=== PATIENT | female | born 1960 | race Caucasian/White ===

== ENCOUNTER 2020-09-22 07:05 | Outpatient (NON) | payer MEDICARE, MEDICAID, SELFPAY ==
[2020-09-22 18:30] LABS: SARS-CoV-2 RNA PCR Negative
== END 2020-09-22 07:06 ==
LOC: ANHCOVIDDT 07:20
PROVIDERS: PCP Family Medicine; Visit Provider Family Medicine
DX: Z20.828 Contact with and (suspected) exposure to other viral communicable diseases (principal); R09.89 Other specified symptoms and signs involving the circulatory and respiratory systems
CPT/HCPCS: 87635; C9803; U0003

== ENCOUNTER 2022-04-19 01:09 | Day surgery (SDC) | payer MEDICARE, MEDICAID, SELFPAY ==
--- NOTE | 2022-04-16 09:50 | PC.NURSE ---
Report to the Outpatient Waiting Room, entrance under the green pavilion located off [facility], at time _0700 on date _04/19/22 . OR Time: _0900 . - You and your visitor will be asked a series of questions to screen for COVID 19 for your protection. - Only one visitor is allowed at this time. - The patient visitor is requested to leave or wait in car when not with patient. - A mask is required within the hospital. Patients may have clear liquids (water, carbonated beverages, clear teas, apple juice) until 3 hours prior to surgery with a maximum of 20 ounces. - No food from midnight until time of surgery - Infants may have breast milk until 4 hours before surgery, infant formula 6 hours prior to surgery. - Children will be allowed to drink immediately following surgery. If applicable, please bring a bottle or sippy cup to assist with drinking. Juice, water, soda, and popsicles are readily available. For infants on formula, please bring formula the day of surgery. Pacifiers are allowed. Take the following medications with a SIP of water the morning of surgery: ____FLUOXETINE Medications to discontinue per physician ___ADVIL 7 DAYS PRE OP Date to take last dose___04/11/22 Please no make-up, nail macedonian, hairspray, perfume, deodorant, or body powder the day of surgery. No jewelry (including any body piercings) or valuables the day of surgery, leave them at home. Please take a shower or bath the night before, or the morning of, surgery with an antibacterial soap. Wear comfortable, loose fitting clothing. Children are encouraged to wear pajamas. - Jewelry must be removed prior to entering the operating room. Rings and piercings that are not removed may be cut off. - The hospital will not accept responsibility for valuables. - Please leave all valuables, including medications, at home the day of surgery. If you are going home after surgery, a licensed emt driver must drive you home. - NO public transportation without another adult. - We recommend that an adult stay with you for 24 hours following discharge. - We also recommend that you do not drive, make important decision, drink alcoholic beverages, or take any drugs that were not prescribed by your health care provider for at least 24 hours after your discharge time. For Pediatric surgeries, we recommend two adults accompany the child home (only one inside the building at this time). Follow any additional instructions given to you from your surgeon. If you or anyone in your household have experienced Covid symptoms in the past week, please notify your surgeon or the nurse liaison at the phone number below for possible testing. Telephone instructions given to _PATIENT and asked if any additional questions and then verbalized understanding. Patient advised to call surgeon office or pre surgery nurse liaison [phone] if any additional questions.
[2022-04-16 11:03] VITALS: BMI 23.2
--- NOTE | 2022-04-18 16:01 | PM.IMHP ---
H&P: HPI History of Present Illness Date/Time: 04/18/22 16:01 Chief Complaint: Right toe deformity and pain Narrative: 61-year-old woman with arthrogryposis with previous surgery and deformity right great toe and lesser toes. Still with significant pain and problems with shoe wear and ambulation. Has failed conservative treatment and presents now for operative treatment. Review of Systems Constitutional: Constitutional: Denies fever(s) Eyes: Eyes: Denies blurry vision ENT: Reports Normal hearing present Cardiovascular: Cardiovascular: Denies chest pain and Denies dyspnea Respiratory: Respiratory: Denies dyspnea and Denies wheezing Gastrointestinal: Gastrointestinal: Denies abdominal pain Genitourinary: Genitourinary: Denies urinary urgency Musculoskeletal: Musculoskeletal: Reports as per HPI and Denies numbness Integumentary/Breasts: Skin/Breast: Denies changing lesions and Denies sores Neurologic: Reports Normal hearing present, Denies behavioral changes, Denies confusion, Denies numbness and Denies convulsions Psychiatric: Psychiatric: Denies behavioral changes, Denies confusion and Denies hallucinations Endocrine: Endocrine: Denies heat intolerance Hematologic/Lymphatic: Hematologic/Lymphatic: Denies easy bleeding Allergic/Immunologic: Allergic/Immunologic: Denies wheezing PMFSH Past Medical History Medical History Anxiety Arthrogryposis Callus of foot Cervical spondylosis with radiculopathy Deformity of toe of right foot Depression Dyspnea Vision loss Surgical History Surgical History H/O foot surgery Left hammertoe correction 04/22/14, 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 History of surgery on arm Right partial ulna removal 08/17/10 Family History Family History Mother Patient's mother is in good health Father Family history of chronic obstructive pulmonary disease Family history of coronary artery disease Other Family history of tuberculosis No family history of diabetes mellitus Social History Social History Smoking packs per day: 0.5 Smoking cigarettes per day: 10.0 Years smoked: 45 Smoking pack-years: 22.50 Smoking status: Current every day smoker Tobacco type: cigarettes Alcohol intake: never Alcohol use details: Socail drinker Substance use: current Substance use type: marijuana Other substance usage details: weekly Last use: 04/12/22 Spiritual care concerns: No Meds Home Medications and Allergies Home Medications Medication Instructions Recorded Confirmed Type alprazolam 1 mg tablet 1 mg PO HS 02/09/22 04/16/22 History cyclobenzaprine 10 mg tablet 10 mg PO DAILY 02/09/22 04/16/22 History fluoxetine 20 mg capsule 20 mg PO DAILY 02/09/22 04/16/22 History imipramine HCl 50 mg tablet 50 mg PO HS 02/09/22 04/16/22 History omeprazole 20 mg capsule,delayed 20 mg PO DAILY 02/09/22 04/16/22 History release ibuprofen 200 mg tablet (Advil) 200 mg PO Q6H PRN Pain 03/26/22 04/16/22 History albuterol sulfate 90 mcg/actuation 2 inh inhalation PRN PRN Shortness 04/16/22 04/16/22 History aerosol inhaler Of Breath ergocalciferol (vitamin D2) 1,250 1 cap PO WEEKLY 04/16/22 04/16/22 History mcg (50,000 unit) capsule Allergies Allergy/AdvReac Type Severity Reaction Status Date / Time No Known Drug Allergies Allergy Other Verified 04/16/22 09:39 Exam Const: General: No confusion Orientation/consciousness: patient oriented x3 and No confusion HENMT: Head: normal to inspection, normocephalic and atraumatic Eyes: Conjunctivae: conjunctivae normal Sclera: sclerae normal Neck: Neck: supple and nontender Chest: Flores
[2022-04-19] VITALS (8 sets, daily range): BP systolic 96–123; BP diastolic 53–67; PULSE 79–95; RESP 14–18; TEMP 36.4–37.5; O2SAT 94–100
--- NOTE | ~2022-04-19 | XR_ITS ---
EXAMINATION: XR surgery orthopedic DATE: 04/19/2022 09:17 INDICATION: Removal of fixation screw at the right great toe TECHNIQUE: 2 fluoroscopic images of the right forefoot were obtained during procedure performed by Dr Serena Hobbs. Radiologist was not present for the imaging or procedure. The amount of fluoroscopy time u sed during this procedure was 0.1 minutes. Total DAP was 0.1271 cGycm^2 COMPARISON: 01/31/2022 FINDINGS: Interval removal of fixation screw at the right great toe and resection of the remaining po rtion of the distal phalanx. Residual lucent screw tract in the proximal phalanx where there been nataliya nge of prior osteotomy at the head. Additional chronic partial amputations of the second-fourth toes with osteotomies across the necks of the second and fourth proximal phalanges with interval revision and approximately advancement of an osteotomy across the mid diaphysis of the third proximal phalanx. There is also likely postoperative soft tissue gas at the distal stump of the second toe. No retaine d metallic foreign bodies. No fracture. The first and fifth metatarsophalangeal joint spaces appear n ormal. The second-fourth metatarsophalangeal joint spaces are suboptimally profiled. IMPRESSION: 1. Fluoroscopy utilized during orthopedic procedure at the right forefoot including removal of a fixa tion screw and resection of the distal phalanx of the right great toe and likely revision osteotomy a t the third proximal phalanx. See procedure note for further detail. Reviewed, dictated and finalized at location A. IMPRESSION: 1. Fluoroscopy utilized during orthopedic procedure at the right forefoot inclu ding removal of a fixation screw and resection of the distal phalanx of the rig ht great toe and likely revision osteotomy at the third proximal phalanx. See p rocedure note for further detail.
--- NOTE | 2022-04-19 07:03 | WPDHPUPDATE1 ---
History and Physical Update Update Date/Time: 04/19/22 07:03 History and Physical has been reviewed, including an updated exam of the patient. There are NO changes in the patient's condition. Risks, benefits, and alternatives have been discussed and questions answered. Patient agrees to proceed with procedure.
--- NOTE | 2022-04-19 07:36 | ECG_ITS ---
Measurements Intervals [place] Rate: 79 P: 88 VT: 162 QRS: 97 QRSD: 91 T: 66 QT: 360 QTc: 413 Interpretive Statements SINUS RHYTHM BORDERLINE RIGHT AXIS DEVIATION [QRS AXIS > 90] NO PREVIOUS ECG AVAILABLE FOR COMPARISON Electronically Signed On 04-19-2022 17:58:48 CDT by Sarah Beaulieu M.D.
[2022-04-19] MEDS: ACETAMINOPHEN 500 MG TABLET 1000 MG PO (07:44)
[2022-04-19] MEDS: LACTATED RINGERS 1,000 ML 30 ML IV CONT ×2 (07:56→09:27)
[2022-04-19] MEDS: KETOROLAC 15 MG/ML VIAL (*BKC) IV PUSH (07:58)
--- NOTE | 2022-04-19 07:58 | WPDANESEPPF ---
Anes - Initial Pre Proc Eval Procedure: Operation Date: 04/19/22 09:00 Proposed Procedures p Right Hallux Removal of Hardware, Partial Amputation, Removal Exotosis Right Third Toe - Gelacio Hobbs MD Date/Time: 04/19/22 07:58 Surgeon: Gelacio Hobbs MD Pre Op Diagnosis: right toe deformity and ulcer Patient Data Age: 61 Gender: F Height: 1.57 m Weight: 56 kg Allergies Allergy/AdvReac Type Severity Reaction Status Date / Time No Known Drug Allergies Allergy Other Verified 04/19/22 07:27 Home Medications Medication Instructions Recorded Confirmed Type alprazolam 1 mg tablet 1 mg PO HS 02/09/22 04/19/22 History cyclobenzaprine 10 mg tablet 10 mg PO DAILY 02/09/22 04/19/22 History fluoxetine 20 mg capsule 20 mg PO DAILY 02/09/22 04/19/22 History imipramine HCl 50 mg tablet 50 mg PO HS 02/09/22 04/19/22 History omeprazole 20 mg capsule,delayed 20 mg PO DAILY 02/09/22 04/19/22 History release ibuprofen 200 mg tablet (Advil) 200 mg PO Q6H PRN Pain 03/26/22 04/19/22 History albuterol sulfate 90 mcg/actuation 2 inh inhalation PRN PRN Shortness 04/16/22 04/16/22 History aerosol inhaler Of Breath ergocalciferol (vitamin D2) 1,250 1 cap PO WEEKLY 04/16/22 04/19/22 History mcg (50,000 unit) capsule Patient hx anesthesia problems: none Family hx anesthesia problems: none Results Review: All pre-operative results and documents have been reviewed as part of the pre-operative evaluation. [facility] Past Medical History Medical History Anxiety Arthrogryposis Callus of foot Cervical spondylosis with radiculopathy Deformity of toe of right foot Depression Dyspnea Vision loss Surgical History Surgical History H/O foot surgery Left hammertoe correction 04/22/14, 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 History of surgery on arm Right partial ulna removal 08/17/10 Family History Family History Mother Patient's mother is in good health Father Family history of chronic obstructive pulmonary disease Family history of coronary artery disease Other Family history of tuberculosis No family history of diabetes mellitus Social History Social History Smoking packs per day: 0.5 Smoking cigarettes per day: 10.0 Years smoked: 45 Smoking pack-years: 22.50 Smoking status: Current every day smoker Tobacco type: cigarettes Alcohol intake: never Alcohol use details: Socail drinker Substance use: current Substance use type: marijuana Other substance usage details: weekly Last use: 04/12/22 Living arrangements: alone Spiritual care concerns: No Anes - Eval Final PreProcedure Day of Procedure 04/19/22 07:58 Patient weight: normal Heart: regular rate and rhythm Lungs: clear to auscultation Airway: Mallampati scale class II Neurological: alert and oriented Last oral intake: >/= 8 hours ASA classification: III Emergent: no Anesthetic plan: proceed Anesthesia type and monitoring: general LMA and standard monitoring Results Review: All pre-operative results and documents have been reviewed as part of the pre-operative evaluation. Informed Consent: The patient's anesthetic plan and its attendant risks and benefits were discussed with the patient/family/POA. Questions were solicited and answers provided to the satisfaction of the patient/family/POA.
[2022-04-19] MEDS: ceFAZolin 2 GM/D5W 50 ML 2 GM/50 ML BAG IVPB (08:32)
[2022-04-19] MEDS: BUPIVACAINE HCL 0.5% PF 30 ML VIAL INFILTRATE (09:26)
--- NOTE | 2022-04-19 10:01 | P.OP_ITS ---
Procedure Note - Detailed Date of Procedure 04/19/22 Pre-op Diagnosis right toe deformity and ulcer, painful hardware, exostosis Post-op Diagnosis Same Procedure Performed Right foot removal of hardware, partial amputation of hallux, excision of exostosis 3rd toe Surgeon Gelacio Hobbs MD Emergency Communications Officer senior executive assistant Anesthesia General Indications 61-year-old woman with arthrogryposis and right toe deformity secondary to medical condition and previous surgery. She has pain at the hallux with relatively long hallux after partial amputation of the lesser toes. This causes problems with weight-bearing and shoe wear. There is hardware present which is painful. She did desires removal and partial amputation of the hallux. Also large exostosis from the 3rd toe with callus formation. Description of Procedure Patient identified in the preoperative holding. Informed consent given. Operative extremity marked. Patient received intravenous antibiotics. Patient brought to the operating room where underwent general anesthetic by anesthesia team. Positioned supine on operating room table. Time-out performed confirming the patient, site of the surgery and the plan. Right foot prepped draped usual sterile surgical fashion using ChloraPrep skin solution. Care was taken to protect the leg during positioning, draping and surgery due to the right hip total arthroplasty. The foot was exsanguinated with an Esmarch bandage which was wrapped at the ankle as a tourniquet. The hallux was addressed 1st. Fifteen blade knife used to make a small incision at the distal aspect of the toe. The cannulated screw was identified and found and removed with a screwdriver. Wound thoroughly irrigated. A dorsal incision was then made over the interphalangeal arthrodesis point and an elliptical incision was made to some of the distal aspect hallux tuft. The distal bone was dissected from soft tissue and the distal phalanx was then removed with a bone cutter and smoothed with a rongeur. Fluoroscopy confirmed resection level. Wound thoroughly irrigated with solution and closed with 3-0 Monocryl interrupted suture and 4-0 nylon interrupted suture for the skin. Third toe then addressed. An elliptical incision was made on the distal aspect. The exostosis was dissected from the soft tissue and resected with a bone cutter. Remaining bone smoothed with a rongeur. Image intensification confirm the resection of the exostosis. Wound irrigated and closed with 3-0 Monocryl interrupted suture and 4-0 nylon interrupted suture. Sterile dressing applied. The patient was then woken from anesthesia, extubated and taken to the recovery room in stable condition. All sponge, needle, instrument counts were correct at the end of the case. Estimated Blood Loss 5 Tourniquet Time 40 Drains No Packing No Pathology None sent Complications None Condition Stable Disposition PACU
== END 2022-04-19 11:35 | disposition home or self-care (01) ==
PROVIDERS: PCP Emergency Medicine; Visit Provider Orthopaedic Surgery
PROC: (CPT 28825; principal; 2022-04-19 09:00)
DX: T84.84XA Pain due to internal orthopedic prosthetic devices, implants and grafts, initial encounter (principal); Y83.8 Other surgical procedures as the cause of abnormal reaction of the patient, or of later complication, without mention of misadventure at the time of the procedure; Q68.8 Other specified congenital musculoskeletal deformities; M20.61 Acquired deformities of toe(s), unspecified, right foot; M77.51 Other enthesopathy of right foot and ankle; L84 Corns and callosities; F41.9 Anxiety disorder, unspecified; F32.A Depression, unspecified; F17.210 Nicotine dependence, cigarettes, uncomplicated; F12.90 Cannabis use, unspecified, uncomplicated; Z79.51 Long term (current) use of inhaled steroids
CPT/HCPCS: 28825; 20680; 28108; 93005; A9270; J0690; J1100; J1885; J2250; J2370; J2405; J3010; J7120

== ENCOUNTER 2022-06-28 12:35 | Outpatient (CLI) | payer MEDICARE, MEDICAID, SELFPAY ==
--- NOTE | ~2022-06-28 | XR_ITS ---
XR chest 2V DATE: 06/28/2022 13:03 INDICATION: Shortness of breath on exertion. Centrilobular emphysema. TECHNIQUE: PA and lateral views COMPARISON: 07/27/2017 2 view chest FINDINGS: Normal heart size. Aortic calcification. Bilateral hyperinflation and flattening of the d iaphragm, consistent with history of COPD. Bilateral mild apical capping. No pulmonary infiltrate or consolidation, pulmonary vascular congestion or pleural effusion or pneumo thorax. Diffuse osteopenia. IMPRESSION: COPD Aortic calcification No active pulmonary disease Reviewed, dictated and finalized at location A.
== END 2022-06-28 12:36 | disposition home or self-care (01) ==
PROVIDERS: PCP Emergency Medicine; Visit Provider Emergency Medicine
DX: J43.2 Centrilobular emphysema (principal); I70.0 Atherosclerosis of aorta
CPT/HCPCS: 71046

== ENCOUNTER 2022-07-22 17:45 | Emergency (ER) | payer MEDICARE, MEDICAID, SELFPAY ==
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
[2022-07-22 18:11] VITALS: BP 93/77; PULSE 89; RESP 18; TEMP 36.9; O2SAT 99
--- NOTE | 2022-07-22 19:36 | ECG_ITS ---
Measurements Intervals [place] Rate: 73 P: 89 [place]: 173 QRS: 89 QRSD: 105 T: 54 QT: 391 QTc: 433 Interpretive Statements SINUS RHYTHM INCOMPLETE RIGHT BUNDLE BRANCH BLOCK [90+ ms QRS DURATION, TERMINAL R IN V1/V2, 40+ ms S IN I/aVL/V4/V5/V6] COMPARED TO ECG 04/19/2022 08:15:44 NO SIGNIFICANT CHANGE Electronically Signed On 07-23-2022 14:40:37 CDT by Jose Mar M.D.
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
[2022-07-22 22:11] VITALS: BP 107/60; PULSE 66; RESP 18; O2SAT 96
[2022-07-22 22:16] LABS: Troponin I 0.014 ng/mL (0.000-0.034)
[2022-07-22] MEDS: HYDROcodone/acetaminophen (*CRX) 5-325 MG TABLET 1 TAB PO (22:37)
== END 2022-07-22 23:00 | disposition home or self-care (01) ==
PROVIDERS: Physician Assistant; Emergency Provider Emergency Medicine; PCP Emergency Medicine
DX: S22.20XA Unspecified fracture of sternum, initial encounter for closed fracture (principal); F41.9 Anxiety disorder, unspecified; F32.A Depression, unspecified; F17.210 Nicotine dependence, cigarettes, uncomplicated; I45.10 Unspecified right bundle-branch block; V49.9XXA Car occupant (driver) (passenger) injured in unspecified traffic accident, initial encounter
CPT/HCPCS: 36415; 71250; 84484; 93005; 99284; A9270

== ENCOUNTER 2023-03-12 00:28 | Day surgery (SDC) | payer MEDICARE, MEDICAID, SELFPAY ==
[2023-02-22 10:47] VITALS: BMI 23.3
[2023-03-12 08:58] VITALS: BP 111/90; PULSE 113; RESP 18; TEMP 36.8; O2SAT 100; BMI 21.0
[2023-03-12] MEDS: LACTATED RINGERS 1,000 ML 150 ML IV CONT (09:22)
--- NOTE | 2023-03-12 09:24 | PM.HPGS ---
History of Present Illness History of Present Illness Consent: Risks, benefits, and alternatives have been discussed and questions answered. Patient agrees to proceed with procedure. Chief complaint: neoplasm screening, GERD Narrative: Kristy Weller is a 62 year old female Referred for both colonoscopy and EGD. Patient states that she has abdominal pain shortly after eating. She develops abdominal cramps. She states she has a tendency towards constipation. She reports she takes no specific medications for this. Patient's past medical history is significant for esophageal stricture. She is felt to have underlying acid reflux disease. Current medications include omeprazole 20mg p.o. daily. She reports slow passage of food that she eats. She denies any heartburn at present. Patient does have past medical history of ischemic colitis in 2017 diagnosed by colonoscopy. Patient is referred today for neoplasia screening colonoscopy. She denies any blood in her stools. She denies any weight loss. No reported family history of colon or rectal disease. Review of Systems Review of Systems: Review of systems noncontributory. 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 History of surgery on arm Right partial ulna removal 08/17/10 Family History Family History Mother Patient's mother is in good health Father Family history of chronic obstructive pulmonary disease Family history of coronary artery disease Other Family history of tuberculosis No family history of diabetes mellitus Social History Social History Smoking packs per day: 0.5 Smoking cigarettes per day: 10.0 Years smoked: 48 Smoking pack-years: 24.00 Smoking status: Current every day smoker Tobacco type: cigarettes Alcohol intake: current Alcohol use details: Socail drinker Substance use: current Substance use type: marijuana Other substance usage details: SMOKES OCC. Last use: 04/12/22 Living arrangements: with family Spiritual care concerns: No Meds Home Medications and Allergies Home Medications Medication Instructions Recorded Confirmed Type alprazolam 1 mg tablet 1 mg PO TID 02/09/22 02/22/23 History cyclobenzaprine 10 mg tablet 10 mg PO HS 02/09/22 02/22/23 History fluoxetine 20 mg capsule 20 mg PO DAILY 02/09/22 02/22/23 History imipramine HCl 50 mg tablet 50 mg PO HS 02/09/22 02/22/23 History omeprazole 20 mg capsule,delayed 20 mg PO DAILY 02/09/22 02/22/23 History release albuterol sulfate 90 mcg/actuation 2 inh inhalation PRN PRN Shortness 04/16/22 02/22/23 History aerosol inhaler Of Breath Allergies Allergy/AdvReac Type Severity Reaction Status Date / Time No Known Drug Allergies Allergy Other Verified 02/22/23 10:49 Vital Signs Vital Signs - 24 hr 03/12/23 08:58 Temperature 98.2 F Pulse Rate 113 H Respiratory Rate 18 Blood Pressure 111/90 Pulse Oximetry 100 Oxygen Delivery Room Air Exam Narrative: Physical exam reveals patient to be alert. Vital signs stable. HEENT exam is unremarkable. Patient is anicteric. Lungs are clear to auscultation and percussion. Heart is without murmur or extra sounds. Abdomen bowel sounds present soft nontender with no organomegaly. Digital external rectal exam is normal. Assessment and Plan Assessment and plan (1) Encounter for screening colonoscopy:
--- NOTE | 2023-03-12 09:36 | WPDANESEPPF ---
Anes - Initial Pre Proc Eval Procedure: Operation Date: 03/12/23 10:00 Proposed Procedures p Esophagogastroduodenoscopy & Screening Colonoscopy - Allan Aguiar MD Date/Time: 03/12/23 09:36 Surgeon: Allan Aguiar MD Pre Op Diagnosis: neoplasm screening, GERD Patient Data Age: 62 Gender: F Height: 1.57 m Weight: 52.2 kg Last Vital Signs Temp 98.2 F 03/12/23 08:58 Pulse 113 H 03/12/23 08:58 Resp 18 03/12/23 08:58 BP 111/90 03/12/23 08:58 Pulse Ox 100 03/12/23 08:58 O2 Del Method Room Air 03/12/23 08:58 Allergies Allergy/AdvReac Type Severity Reaction Status Date / Time No Known Drug Allergies Allergy Other Verified 02/22/23 10:49 Home Medications Medication Instructions Recorded Confirmed Type alprazolam 1 mg tablet 1 mg PO TID 02/09/22 02/22/23 History cyclobenzaprine 10 mg tablet 10 mg PO HS 02/09/22 02/22/23 History fluoxetine 20 mg capsule 20 mg PO DAILY 02/09/22 02/22/23 History imipramine HCl 50 mg tablet 50 mg PO HS 02/09/22 02/22/23 History omeprazole 20 mg capsule,delayed 20 mg PO DAILY 02/09/22 02/22/23 History release albuterol sulfate 90 mcg/actuation 2 inh inhalation PRN PRN Shortness 04/16/22 02/22/23 History aerosol inhaler Of Breath Patient hx anesthesia problems: none Family hx anesthesia problems: none Results Review: All pre-operative results and documents have been reviewed as part of the pre-operative evaluation. 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 History of surgery on arm Right partial ulna removal 08/17/10 Family History Family History Mother Patient's mother is in good health Father Family history of chronic obstructive pulmonary disease Family history of coronary artery disease Other Family history of tuberculosis No family history of diabetes mellitus Social History Social History Smoking packs per day: 0.5 Smoking cigarettes per day: 10.0 Years smoked: 48 Smoking pack-years: 24.00 Smoking status: Current every day smoker Tobacco type: cigarettes Alcohol intake: current Alcohol use details: Socail drinker Substance use: current Substance use type: marijuana Other substance usage details: SMOKES OCC. Last use: 04/12/22 Living arrangements: with family Spiritual care concerns: No Anes - Eval Final PreProcedure Day of Procedure 03/12/23 09:36 Patient weight: normal Heart: regular rate and rhythm Lungs: clear to auscultation Airway: Mallampati scale class II Neurological: alert and oriented Last oral intake: >/= 8 hours ASA classification: III Emergent: no Anesthetic plan: proceed Anesthesia type and monitoring: general GIVS and standard monitoring Results Review: All pre-operative results and documents have been reviewed as part of the pre-operative evaluation. Informed Consent: The patient's anesthetic plan and its attendant risks and benefits were discussed with the patient/family/POA. Questions were solicited and answers provided to the satisfaction of the patient/family/POA.
--- NOTE | 2023-03-12 10:21 | SUR.OPER ---
EGD START: 1003; END: 1005. COLONOSCOPY START: 1011; END: 1021.
[2023-03-12 10:24] VITALS: BP 108/33; PULSE 74; RESP 22; O2SAT 98
[2023-03-12 10:34] VITALS: BP 121/66; PULSE 74; RESP 20; O2SAT 99
[2023-03-12 10:44] VITALS: BP 130/55; PULSE 72; RESP 20; O2SAT 99
== END 2023-03-12 10:55 | disposition home or self-care (01) ==
PROVIDERS: PCP Emergency Medicine; Visit Provider Internal Medicine Gastroenterology
PROC: 0DJ08ZZ Inspection of Upper Intestinal Tract, Via Natural or Artificial Opening Endoscopic (ICD-10-PCS; CPT 43235; principal; 2023-03-12 10:00)
DX: Z12.11 Encounter for screening for malignant neoplasm of colon (principal); K21.9 Gastro-esophageal reflux disease without esophagitis; M47.22 Other spondylosis with radiculopathy, cervical region; Q68.8 Other specified congenital musculoskeletal deformities; F17.210 Nicotine dependence, cigarettes, uncomplicated; F32.A Depression, unspecified; F41.9 Anxiety disorder, unspecified
CPT/HCPCS: 43239; G0121; 87081; J2704; J7120

== ENCOUNTER 2023-06-28 10:50 | Outpatient (CLI) | payer MEDICARE, MEDICAID, SELFPAY ==
--- NOTE | ~2023-06-28 | XR_ITS ---
Clinical Indication: Chest pain PA and lateral views of the chest: Comparison: 06/28/2022 Findings: There is focal hazy opacity in the peripheral right upper lobe. There is additional subtle hazy opacity in the right perihilar region. Left lung clear.. Cardiomediastinal silhouette is within normal limits. Bones and soft tissues are unremarkable. Impression: Suspected multifocal pneumonia in the right lung. Reviewed, dictated and finalized at location M. Impression: Suspected multifocal pneumonia in the right lung.
== END 2023-06-28 10:51 | disposition home or self-care (01) ==
PROVIDERS: PCP Emergency Medicine; Visit Provider Emergency Medicine
DX: R07.89 Other chest pain (principal); R91.8 Other nonspecific abnormal finding of lung field
CPT/HCPCS: 71046

== ENCOUNTER 2023-11-15 13:01 | Outpatient (CLI) | payer MEDICARE, MEDICAID, SELFPAY ==
--- NOTE | ~2023-11-15 | CT_ITS ---
EXAMINATION: CT lung screening DATE: 11/15/2023 13:15 INDICATION: Nicotine dependence TECHNIQUE: Computed tomography (CT) of the chest was performed without intravenous contrast. The dose -length product was 62.28 mGy-cm. Automated exposure control and iterative reconstruction technique w ere employed. COMPARISON: CT dated 07/22/2022 FINDINGS: There is mediastinal lymphadenopathy. Heart size normal. No significant pleural or pericard ial effusion. Status post cholecystectomy. There is atherosclerosis of the aorta and coronary arterie s. There is a focal pleural thickening/scarring which appears chronic. There is emphysema. There is a pleural-based mass in the superior segment of the left lower lobe measuring 2 x 1.5, image 50. There is also focal left pleural thickening posterior laterally in the left midlung, image 43. There are a few patchy groundglass opacities with reticulonodular densities, particularly in the right lower lob e. IMPRESSION: 1. Lung Rads category 4B, very suspicious. Recommend follow-up PET/CT scan or CT guided tissue sampli ng. Reviewed, dictated and finalized at location B. LER OPERATOR IMPRESSION: 1. Lung Rads category 4B, very suspicious. Recommend follow-up PET/CT scan or C T guided tissue sampling.
== END 2023-11-15 13:02 | disposition home or self-care (01) ==
PROVIDERS: PCP Emergency Medicine; Visit Provider Emergency Medicine
DX: Z12.2 Encounter for screening for malignant neoplasm of respiratory organs (principal); Z87.891 Personal history of nicotine dependence
CPT/HCPCS: 71271

== ENCOUNTER 2023-12-10 11:54 | Outpatient (CLI) | payer MEDICARE, MEDICAID, SELFPAY ==
--- NOTE | ~2023-12-10 | PE_ITS ---
EXAMINATION: PET skull to mid thigh DATE: 12/10/2023 14:38 INDICATION: Lung nodule TECHNIQUE: Blood glucose level was 189 mg/dL. 9.19 mCi of 18-fluorodeoxyglucose (18-FDG) was administ ered i.v. Low dose computed tomography (CT) images were acquired from the base of the brain to the pr oximal thighs for attenuation correction and anatomic localization. Positron emission tomography (PET ) images were acquired in the same distribution beginning 59 minutes after injection. The dose-length product (DLP) was 529.32 mGy-cm. COMPARISON: CT, 11/15/2023, 07/22/2022 FINDINGS: Head/neck: There is FDG uptake in the right bond writer space without suspicious CT correlate, likely physiologic. No suspicious FDG uptake is identified. Chest: Airspace opacities have developed in the lower lobes since the comparison CT. There is associa ryley FDG uptake with an SUV max of 8.75. There is a persistent pleural-based nodule in the posteromedi al aspect of the left lower lobe which demonstrates mild FDG uptake but is difficult to discern from the adjacent airspace opacity. There is mild emphysema. There is scarring of the lung apices. No path ologically enlarged thoracic lymph nodes are identified. The heart size is normal. Calcified coronary artery atherosclerosis is noted. No pleural effusion or pneumothorax. Abdomen/pelvis/proximal thighs: Physiologic FDG activity is present in the bowel and urinary tract. N o abnormal FDG uptake is identified. There are changes of cholecystectomy. The liver, spleen, pancrea s, and adrenal glands are normal. The kidneys are unremarkable. No pathologically enlarged abdominal or pelvic lymph nodes are identified. No free intraperitoneal gas or evidence of bowel obstruction. Musculoskeletal: No abnormal FDG uptake is identified. Lucencies in left humeral head could reflect s ites of prior orthopedic hardware. There is antegrade intramedullary piper and interlocking intratrocha nteric screw fixation of the femurs. IMPRESSION: 1. Airspace opacities in the lower lobes, new since the comparison CT, likely pneumonia. The pleural- based nodule of the left lower lobe remains indeterminate. Follow-up low-dose CT in three months is r ecommended. Reviewed, dictated and finalized at location B. PROGRAMMER ANALYST IMPRESSION: 1. Airspace opacities in the lower lobes, new since the comparison CT, likely p neumonia. The pleural-based nodule of the left lower lobe remains indeterminate . Follow-up low-dose CT in three months is recommended.
[2023-12-10 12:47] LABS: Glucose Point of Care 100 mg/dl (65-105)
== END 2023-12-10 11:55 | disposition home or self-care (01) ==
LOC: ANHIMG 11:55
PROVIDERS: PCP Emergency Medicine; Visit Provider Emergency Medicine
DX: R91.8 Other nonspecific abnormal finding of lung field (principal); R91.1 Solitary pulmonary nodule
CPT/HCPCS: 78815; A9552

== ENCOUNTER 2024-02-26 10:40 | Outpatient (CLI) | payer MEDICARE, MEDICAID, SELFPAY ==
--- NOTE | ~2024-02-26 | CT_ITS ---
EXAMINATION:CT diagnostic chest wo con DATE: 02/26/2024 11:13 INDICATION: Lung nodule. TECHNIQUE: Computed tomography (CT) of the chest was performed without intravenous contrast. Automate d exposure control and iterative reconstruction technique were employed. The dose-length product (DLP ) was 67.75 mGy-cm. COMPARISON: Chest CT 11/15/2023, 07/22/2022 FINDINGS: There is mosaic attenuation in the lungs, likely small airways disease. There are chronic a irspace opacities with volume loss at the lung apices, consistent with scarring. There are airspace o pacities with volume loss in the peripheral apicoposterior segment left upper lobe and superior segme nt left lower lobe. There is peripheral septal thickening in the inferior lungs. There is mild bronch iectasis in the inferior lungs. No honeycombing. No pleural effusion. 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 The heart size is normal. There are coronary artery calcifications. No pericardial eff usion. There are no pathologically enlarged lymph nodes. There are changes of cholecystectomy. There is mild thoracic spondylosis. IMPRESSION: 1. Airspace opacities in the apicoposterior segment left upper lobe and superior segment left lower l obe with mild worsening from 11/15/21, likely a combination of pneumonia and scarring. 2. Chronic interstitial lung disease. Reviewed, dictated and finalized at location A. IMPRESSION: 1. Airspace opacities in the apicoposterior segment left upper lobe and superio r segment left lower lobe with mild worsening from 11/15/21, likely a combinatio n of pneumonia and scarring. 2. Chronic interstitial lung disease.
== END 2024-02-26 10:41 | disposition home or self-care (01) ==
PROVIDERS: PCP Emergency Medicine; Visit Provider Emergency Medicine
DX: R91.1 Solitary pulmonary nodule (principal); R91.8 Other nonspecific abnormal finding of lung field; J84.9 Interstitial pulmonary disease, unspecified
CPT/HCPCS: 71250

== ENCOUNTER 2024-03-09 14:57 | Outpatient (CLI) | payer MEDICARE, MEDICAID, SELFPAY ==
--- NOTE | ~2024-03-09 | MM_ITS ---
EXAMINATION: MM screening nicki BI w rob HISTORY: Screening TECHNIQUE: Craniocaudal and mediolateral oblique 3-D tomosynthesis images were obtained and synthetic 2-D images were generated. CAD analysis was submitted and interpreted. COMPARISON: Comparison to multiple prior studies sequentially, with oldest reviewed study dated 06/2015. BREAST PARENCHYMAL COMPOSITION: Not dense: There are scattered areas of fibroglandular density. FINDINGS: There is no evidence of suspicious mass, calcification, or architectural distortion to sugg est malignancy in either breast. There has been no suspicious interval change. IMPRESSION: 1. No mammographic evidence of malignancy. 2. Recommend routine screening mammography in one year. BI-RADS Category 1: Negative Reviewed, dictated and finalized at location A.
--- NOTE | ~2024-03-09 | DEXA_ITS ---
Bone Density Report Name: NATALYA LIZARRAGA Age: 63 Sex: Female Ethnicity: White Date of : 1960 Indication: postmenopausal; screening for osteoporosis; height loss; prior fracture; cancer; asthma or emphysema; hysterectomy; rheumatoid arthritis; Referring Provider: LISA DUARTE Study: Bone densitometry was performed. Exam Date: March 09, 2024 Accession number: [id number] Bone Density: Region BMD T-score Z-score Classification AP Spine(L1-L4) 0.974 -0.7 0.9 Normal World Health Organization criteria for BMD impression classify patients as: Normal (T-score at or above -1.0), Osteopenia (T-score between -1.0 and -2.5), or Osteoporosis (T-score at or below -2.5). Previous Exams: Region Exam Age BMD T-score BMD Change BMD Change Date g/cm2 vs Baseline vs Previous AP Spine (L1-L4) 03/09/2024 63 0.974 -0.7 -0.120 (-10.9% -0.120 (-10.9% 06/29/2015 54 1.094 0.4 *Denotes significance at 95% confidence level, LSC for AP Spine = 0.022 g/cm2 Clinical Information Provided by Patient: Have had a previous hip or vertebral fracture Has had a low trauma fracture Smokes Has rheumatoid arthritis Has the following medical conditions: Asthma or Emphysema, Cancer, Hysterectomy Patient maximum height was 62.0 Menopause Age: 27 No regular weight bearing exercise Drinks caffeinated beverages Onset of menses at age 13 Number of children 1 Impression: The patient has normal bone mass. The patient has risk factors, including: smoking, previous fracture. The BMD for the AP Spine (L1-L4) decreased, changing by -10.9% since the last DXA exam. Discussion: INCREASED RISK OF FRACTURE DUE TO HISTORY OF FRACTURE. The patient's previous fracture puts the patient at high risk of a future fracture. In untreated patients, the risk of osteoporotic fracture increases approximately two-fold for each 1.0 SD decrease in T-score. Low bone density is not the only risk factor for fracture; also consider factors such as patient's age, frailty or poor health, risk of falling, risk of injury, previous osteoporotic fracture, family history of osteoporosis, cigarette smoking, low body weight, etc. Not everyone with a low trauma fracture has osteoporosis; osteomalacia and other metabolic bone disorders should also be considered. Patients who have osteoporosis should be evaluated for specific diseases and conditions (secondary causes) that may cause or contribute to bone loss and fracture risk. National Osteoporosis Foundation (NOF) recommends pharmacologic intervention for patients with a prior hip or vertebral fracture regardless of BMD T-score. The patient should follow a healthful lifestyle (good nutrition with adequate calcium and vitamin D, and appropriate weight-bearing exe
== END 2024-03-09 14:58 | disposition home or self-care (01) ==
LOC: ANHIMG 14:59
PROVIDERS: PCP Emergency Medicine; Visit Provider Emergency Medicine
DX: Z12.31 Encounter for screening mammogram for malignant neoplasm of breast (principal); R29.890 Loss of height; Z78.0 Asymptomatic menopausal state; Z85.9 Personal history of malignant neoplasm, unspecified; Z13.820 Encounter for screening for osteoporosis
CPT/HCPCS: 77063; 77067; 77080

== ENCOUNTER 2024-06-30 11:57 | Outpatient (CLI) | payer MEDICARE, MEDICAID, SELFPAY ==
--- NOTE | ~2024-06-30 | XR_ITS ---
EXAMINATION: XR barium swallow modified DATE: 06/30/2024 14:01 INDICATION: Dysphagia. Shortness of breath. TECHNIQUE: The patient was given barium-containing material of multiple consistencies to swallow by t pamela speech pathologist while I performed fluoroscopy. Fluoroscopy exposure time was 1.4 minutes. The n umber of fluoroscopy images saved to the PACS was 1. Dose-area product was 0.847 Gy-cm^2. FINDINGS: The pharyngeal stage and cervical/esophageal stage of the swallow are normal. IMPRESSION: 1. No laryngeal penetration or aspiration. 2. Please refer to the speech therapy report for recommendations. Reviewed, dictated and finalized at location A.
--- NOTE | 2024-06-30 09:23 | ECHO_ITS ---
Patient Info Name: Kristy Weller Age: 63 years : 1960 Gender: Female Ht: 62 in Wt: 116 lbs BSA: 1.52 m2 HR: 77 bpm BP: 118 / 61 mmHg Technical Quality: Fair Exam Date: 06/30/2024 9:35 AM Exam Location: Echo Lab Patient Status: Outpatient Admit Date: 06/30/2024 Staff Ordering Physician: Jose Washington MD Director Institution: [facility] Attending Provider: Jose Washington MD Referring Physician: Felix SHAH; Exam Type: CA echo doppler color flow Study Info Indications R06.02 - Shortness of breath Complete two-dimensional, color flow and Doppler transthoracic echocardiogram is performed. Strain analysis performed. Summary 1. Complete two-dimensional, color flow and Doppler transthoracic echocardiogram is performed. 2. Left ventricular chamber dimension is normal. 3. Left ventricular systolic function is normal, estimated at 60-65%. 4. The left ventricular diastolic function is abnormal. 5. E/e' 12 is mildly elevated. 6. Global longitudinal strain is slightly abnormal at -16.2%. 7. There is mild aortic valve sclerosis. 8. No pulmonary hypertension, estimated pulmonary arterial systolic pressure is 35 mmHg. 9. There is trace pulmonic regurgitation. Left Ventricle E/e' 12 is mildly elevated. Global longitudinal strain is slightly abnormal at -16.2%. Left ventricular chamber dimension is normal. Left ventricular systolic function is normal, estimated at 60-65%. The left ventricular diastolic function is abnormal. Right Ventricle Right ventricular systolic function is normal and with normal TAPSE 1.8 cm. Right ventricular chamber dimension is normal. Left Atria Left atrial chamber dimension is normal. Right Atria Right atrial chamber dimension is normal. Aortic Valve The aortic valve is trileaflet. There is mild aortic valve sclerosis. There is no aortic valve stenosis. There is no aortic valve regurgitation. Pulmonic Valve There is trace pulmonic regurgitation. Mitral Valve There is no mitral valve stenosis. There is no mitral valve regurgitation. Tricuspid Valve There is no tricuspid valve regurgitation. No pulmonary hypertension, estimated pulmonary arterial systolic pressure is 35 mmHg. Pericardium/Pleural There is no pericardial effusion. Inferior Vena Cava Normal inferior vena cava with >50% collapse upon inspiration consistent with normal right atrial pressure, 5 mmHg. Aorta The aortic root size at the sinus of Valsalva is normal. Left Ventricular Outflow Tract Name Value Normal LVOT 2D LVOT Diameter 1.9 cm LVOT Doppler LVOT Peak Gradient 4 mmHg LVOT Mean Gradient 2 mmHg LVOT VTI 22 cm LVOT VTI/AV VTI Ratio 0.8 LVOT Stroke Volume 62 ml LVOT CO 4.5 l/min LVOT CI 3.0 l/min/m2 Pulmonic Valve Name Value Normal RVOT Doppler
[2024-06-30 12:57] LABS: Basophils Percent Auto 0.7 % (0.2-1.2); Eosinophils Absolute Auto 0.1 K/mm3 (0-0.3); Eosinophils Percent Auto 1.7 % (0-4.4); Hematocrit 41.5 % (37.0-47.0); Hemoglobin 13.3 g/dL (12.0-15.0); Immature Granulocyte Absolute 0.03 K/mm3 (0.00-0.031); Immature Granulocyte Percent A 0.5 % (0-0.5); Lymphocytes Absolute Auto 2.38 K/mm3 (0.9-3.2); Lymphocytes Percent Auto 39.9 % (18.3-44.2); Mean Corpuscular Hemoglobin 28.2 pg (26-34); Mean Corpuscular Volume 87.9 fl (80-100); Monocytes Absolute Auto 0.3 K/mm3 (0.1-0.6); Neutrophils Absolute Auto 3.1 K/mm3 (1.3-6.7); Neutrophils Percent Auto 52.2 % (45.5-73.1); Platelet Count Result 160 k/mm3 (150-375); Red Blood Count 4.72 M/mm3 (4.2-5.4)
[2024-06-30 13:14] LABS: CRP < 0.5 mg/dL (<1.0); Creatine Kinase 121 U/L (30-135)
[2024-06-30 13:18] LABS: Rheumatoid Factor < 12.0 IU/ML (<12)
[2024-06-30 14:45] LABS: Erythrocyte Sedimentation Rate 20 mm/hr (0-20)
[2024-07-01 14:09] LABS: Immunoglobulin A 316 mg/dL (70-320); Immunoglobulin G 870 mg/dL (600-1540); Immunoglobulin M 56 mg/dL (50-300)
[2024-07-01 14:39] LABS: Aldolase 4.7 U/L (< OR = 8.1)
[2024-07-02 12:58] LABS: ANA Cascade Screen NEGATIVE (NEGATIVE)
[2024-07-02 14:58] LABS: Anti Cyclic Citrullinated Pept <16 UNITS
[2024-07-02 17:50] LABS: NIL 0.02 IU/mL; Quantiferon TB Plus, 1T NEGATIVE (NEGATIVE); TB2-NIL <0.00 IU/mL
[2024-07-03 10:28] LABS: Immunoglobulin G, Serum 776 mg/dL (600-1540); Immunoglobulin G1 459 mg/dL (382-929); Immunoglobulin G2 221 mg/dL (241-700); Immunoglobulin G3 38 mg/dL (22-178)
--- NOTE | 2024-07-03 15:02 | WPDPFTINT ---
PFT Procedure Performed PFT Procedure Performed Spirometry with Pre/Post Bronchodilator Plethysmography (Lung Vol) Diffusing Cap (DLCO) Flow Vol Loop PFT Interpretation Lung volumes were measured with the body plethysmography method. Lung volumes are unremarkable. Spirometry showed diminished expiratory flow rates and a diminished FEV1 to FVC ratio 56%, consistent with obstructive airway disease. Following administration of a bronchodilator, there was no significant increase in the expiratory flow rates. Lung diffusion capacity is moderately reduced at 49% predicted. The reduced lung diffusion capacity coupled with a diminished alveolar volume and a normal DLCO/ VA ratio is indicative of a loss of alveolar capillary structure with loss of lung volume as seen in emphysema or interstitial lung disease. Impression: Moderately severe obstructive airway disease with no response to bronchodilators. Moderately reduced lung diffusion capacity.
--- NOTE | 2024-07-03 15:07 | WPDSIXMINUTE ---
Six Minute Walk Procedure Procedure Performed Pulmonary Stress Test (6 min walk) Six Minute Walk Six Minute Walk: This 6 minute walk test was conducted with the patient breathing ambient air. The pre-walk baseline oxyhemoglobin saturation was 97%. The patient walked 183 min with no stops during testing. During the walk, the oxyhemoglobin saturation remained in the range of 90% to 95%. Impression: No evidence of oxyhemoglobin desaturation on this testing.
[2024-07-04 11:53] LABS: ANCA Screen NEGATIVE (NEGATIVE)
[2024-07-09 09:14] LABS: Aspergillus Fumigatus K/UL <0.10 kU/L; Aspergillus fumigatus (m3) IgG 22.4 mcg/mL (<2.0); Conventional Class 0
[2024-07-17 05:26] LABS: Aspergillus fumigatus NEGATIVE (NEGATIVE)
== END 2024-06-30 11:58 | disposition home or self-care (01) ==
PROVIDERS: PCP Emergency Medicine; Visit Provider Internal Medicine Pulmonary Disease
DX: J44.9 Chronic obstructive pulmonary disease, unspecified (principal); J98.4 Other disorders of lung; I35.8 Other nonrheumatic aortic valve disorders; I51.89 Other ill-defined heart diseases; R91.1 Solitary pulmonary nodule; J47.9 Bronchiectasis, uncomplicated
CPT/HCPCS: 36415; 82085; 82550; 82784; 82787; 85025; 85652; 86001; 86003; 86036; 86038; 86140; 86200; 86225; 86235; 86364; 86430; 86480; 92611; 93306; 94060; 94618; 94726; 94729

== ENCOUNTER 2024-09-07 14:08 | Observation (INO) | payer MEDICARE, MEDICAID, SELFPAY ==
[2024-09-07] VITALS (13 sets, daily range): BP systolic 107–144; BP diastolic 56–87; PULSE 89–121; RESP 18–36; TEMP 36.6–37; O2SAT 96–100; BMI 22.8
--- NOTE | ~2024-09-07 | CT_ITS ---
CT brain wo con Ordering provider: Wen Quick PA-C History: 64 years Female with . dizziness . Comparison: None. Technique: CT of the head without contrast. Radiation reduction technique utilized.The dose-length product was 681 mGy-cm. FINDINGS: BRAIN PARENCHYMA AND CSF SPACES: Mild leukoaraiosis and diffuse cortical atrophy. Mild atheromatous d isease. No midline shift, mass effect or hemorrhage. The brain parenchyma and CSF spaces are otherwi se normal. VISUALIZED PARANASAL SINUSES: Well aerated. MASTOIDS: Well aerated. BONES: The bones appear intact. SOFT TISSUES: Visualized nasopharynx is normal. Superficial soft tissues are normal. IMPRESSION: No acute intracranial findings. Reviewed, dictated and finalized at location A. RACTIVE WEB DEVELOPER
--- NOTE | ~2024-09-07 | XR_ITS ---
EXAMINATION: XR hip RT 2V w AP pelvis DATE: 09/10/2024 17:19 INDICATION: Right hip replacement with chronic osteomyelitis. TECHNIQUE: Anteroposterior view of the pelvis and anteroposterior and frog-leg lateral views of the r ight hip were obtained. COMPARISON: 05/26/2024, 12/18/2022 and 03/11/2009 FINDINGS: No acute fracture. Asymmetric appearance to the bilateral iliac wings which could be developmental or sequela of old healed fracture of the right iliac wing. Stable appearance of a noncemented right tot al hip arthroplasty. No recent interval change in chronic osteolysis at the proximal aspect of the ri ght femur with smoothly corticated margins ossifications in the expected region of the lesser and gre ater trochanters likely representing chronic nonunited fracture fragments which have been present but with some remodeling when compared with the study from 2008. There are some unchanged retained wire fragments in the previous region of the lesser trochanter. The acetabular component is positioned sli ghtly more cephalad than typical with some protrusio acetabula however this also appears unchanged si nce 2008. No evident lucency surrounding the acetabular component or the mid to distal stem of the fe moral component to suggest loosening. Retrograde intramedullary piper fixation at the visualized proximal left femur. There is a chronically fractured proximal interlocking screw at the level of the greater trochanter. Mild osteoarthritis at the left hip and bilateral sacralized joints. Moderate lower lumbar spondylosis. IMPRESSION: 1. Stable appearance of a right total hip arthroplasty with chronic osteolysis and likely nonunited f racture fragments in the region of the lesser and greater trochanters. No acute osseous abnormality. 2. Partially visualized retrograde intramedullary piper fixation at the visualized proximal left femur with chronic fracture of the proximal interlocking screw. Reviewed, dictated and finalized at location B. NG TESTER IMPRESSION: 1. Stable appearance of a right total hip arthroplasty with chronic osteolysis and likely nonunited fracture fragments in the region of the lesser and greater trochanters. No acute osseous abnormality. 2. Partially visualized retrograde intramedullary piper fixation at the visualize d proximal left femur with chronic fracture of the proximal interlocking screw.
--- NOTE | ~2024-09-07 | CT_ITS ---
EXAMINATION: CTA chest PE abdomen pel DATE: 09/07/2024 17:38 INDICATION: Chest pain. TECHNIQUE: Computed tomography angiography (CTA) of the chest was performed with 100 mL Omnipaque-350 intravenous contrast timed to evaluate the pulmonary arteries. Coronal maximum intensity projection 3D-reconstructions were created by the technologist. Computed tomography (CT) of the abdomen and pelv is was performed with intravenous contrast. Automated exposure control and iterative reconstruction t echnique were employed. The dose-length product was 460.75 mGy-cm. COMPARISON: Chest CT 02/26/2024, CT abdomen and pelvis 07/14/2017 FINDINGS: CTA chest: There is scarring at the lung apices. There is mosaic attenuation in the lungs, likely sma ll airways disease. There is a pneumatocele left lower lobe. There is mild atelectasis bilaterally. T here are airspace opacities in left upper lobe and superior segment left lower lobe. No pleural effus ion. There is total occlusion of the right subclavian artery with reconstitution of flow from the jayson tebral artery. The heart size is normal. No pericardial effusion. There is no pulmonary embolus. Ther e is mild mediastinal lymphadenopathy, likely reactive. There is a small sliding hiatal hernia. There is moderate thoracic spondylosis. CT abdomen and pelvis: The liver and spleen are normal. There are changes of cholecystectomy. The rey creas and adrenal glands are normal. There are cysts in the kidneys measuring up to 11 mm on the left . The bladder is distended. There are no dilated loops of bowel. There are no pathologically enlarged lymph nodes. There is no free intraperitoneal fluid. There is a total right hip arthroplasty. There are lucencies in the ilium adjacent to the acetabular cup, consistent with osteolysis. There is inter nal fixation of left femur. There is severe lumbar spondylosis. IMPRESSION: 1. No pulmonary embolus. 2. Airspace opacities involving left upper lobe and superior segment left lower lobe with slight wors ening from 02/26/2024, likely a combination of pneumonia and scarring. 3. Mild mediastinal lymphadenopathy, likely reactive. 4. Total occlusion of right subclavian artery with reconstitution, consistent with subclavian steal s yndrome. 5. Total right hip arthroplasty with osteolysis adjacent to the acetabular cup, consistent with parti wyatt disease versus infection. Reviewed, dictated and finalized at location A. CTOR OF INTERCOLLEGIATE ATHLETICS IMPRESSION: 1. No pulmonary embolus. 2. Airspace opacities involving left upper lobe and superior segment left lower lobe with slight worsening from 02/26/2024, likely a combination of pneumonia an d scarring. 3. Mild mediastinal lymphadenopathy, likely reactive. 4. Total occlusion of right subclavian artery with reconstitution, consistent w ith subclavian steal syndrome. 5. 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
--- NOTE | ~2024-09-07 | CT_ITS ---
History: Abnormal imaging study of the postoperative right hip for which abscess versus particle dise ase is suspected PROCEDURE: CT guided aspiration of the right glenohumeral joint space COMPARISON: Reference was made to a CT examination of the abdomen and pelvis dated 09/07/2024 TECHNIQUE: After informed consent was obtained from the patient she was taken to the CT suite and claude augustine in the supine position on the CT table. A time out was then performed as per protocol. Limited CT examination of the pelvis was performed demonstrating abnormal attenuation within the righ t hip. The right hip was then prepped and draped in standard sterile fashion. 1% lidocaine was used for local analgesia. This small needle was then exchanged for a 12-gauge bone biopsy device. Utilizing CT guidance, the de vice was utilized to enter the right glenohumeral joint space. No fluid component was encountered. The substance was then removed using The bone biopsy device. Samples were placed into a sterile cup in order to send to pathology. FINDINGS: Dense components of bone attenuation are identified within the right hip, as detailed above . Technically successful aspiration of a bony density within the right hemipelvis, as detailed above. Reviewed, dictated and finalized at location A. COLLECTION SPECIALIST
--- NOTE | ~2024-09-07 | XR_ITS ---
XR chest 2V Ordering provider: Lennox Frye History: 64 years Female with . chest pain, SOB . Comparison: None. FINDINGS: MEDIASTINUM: The cardiac silhouette is not enlarged. LUNGS: No infiltrates, effusions or pneumothorax. Emphysematous changes of the lungs. Elevation of th e left hilum is seen. Adjacent nodule cannot be excluded. CT evaluation advised. OTHER: No free air under the diaphragm. IMPRESSION: No acute cardiopulmonary pathology. Elevation of the left hemidiaphragm with possibility of adjacent nodule cannot be excluded. CT evalua tion advised. Reviewed, dictated and finalized at location A. YTICAL STATISTICIAN IMPRESSION: No acute cardiopulmonary pathology. Elevation of the left hemidiaphragm with possibility of adjacent nodule cannot be excluded. CT evaluation advised.
--- NOTE | 2024-09-07 14:09 | ECG_ITS ---
Test Date: 2024-09-07 14:19:30 Measurements Intervals [place] Rate: 113 P: 0 [place]: 0 QRS: 112 QRSD: 93 T: 54 QT: 320 QTc: 439 Interpretive Statements SINUS TACHYCARDIA WITH SINUS ARRHYTHMIA RIGHT AXIS DEVIATION INCOMPLETE RIGHT BUNDLE BRANCH BLOCK MINIMAL Q WAVES- INFERIOR LEADS BASELINE ARTIFACT- I, II, III, AVR, AVL, AVF, V1-V6 ABNORMAL ECG No previous ECG available for comparison Electronically Signed On 09-07-2024 14:28:37 FACING GRINDER by Woody Peres D.O.
--- NOTE | 2024-09-07 14:25 | ED.CHESTPAIN ---
HPI - Chest Pain General Chief Complaint: Chest Pain <CHRISTIE Foley Last Filed: 09/07/24 14:53> Stated Complaint: SOB, chest pain <Wen Quick PA-C - Last Filed: 09/07/24 14:53> Time Seen by Provider: 09/07/24 14:25 <CHRISTIE Foley Last Filed: 09/07/24 14:53> Focused HPI: Patient is a 64 y/o female, with pmh of RA, who presents to the ED with multiple complaints. Patient reports she has not felt well and has been in bed since . She c/o dizziness, described as though the room is spinning. Worse with movement. Denies previous hx of vertigo. Also reports SOB, cough, pain across her upper chest, nausea, vomiting, diarrhea, lower abdominal pain, HAs, since as well. She reported having a 104degree F fever this morning. She called her PCP and was referred to the ED for further evaluation. Patient has not taken anything for her fever. Afebrile here. GENERAL: Appears older than stated age, thin, and in no acute distress. HEAD: Normocephalic, atraumatic. CHEST: Clear to auscultation. Occasional expiratory wheezing. No distress. Frequent coughing. HEART: Regular rate and rhythm.? ABD: Mild diffuse tenderness. No significant focal tenderness. Normoactive BS. MSK: Ulnar deviation/deformity of fingers arnaud, L>R NEURO: ?Alert and oriented x3. Patient screened in triage and initial orders placed.? ?Additional care and disposition to be based upon?diagnostic testing and treatment. <Wen Quick PA-C - Last Filed: 09/07/24 14:53> Source: patient <CHRISTIE Foley Last Filed: 09/07/24 14:53> Mode of arrival: ambulatory <CHRISTIE Foley Last Filed: 09/07/24 14:53> Limitations: no limitations <CHRSITIE Foley Last Filed: 09/07/24 14:53> History of Present Illness HPI narrative: Agree with the above HPI. Patient is reporting N/V/D, generalized malaise, sweating, productive cough, shortness of breath, dizziness for 4 days. She describes the dizziness is a spinning sensation, worse with movement. States history she began developing right upper chest pain that radiated to her right arm. States it is intermittent cannot identify any aggravating or alleviating factors. Denies prior personal cardiac history does report her father had cardiac disease. She admits to smoking 1 pack per day since she was 14 years old. No formal diagnosis of COPD or asthma. She reports history of RA. She is also reporting diffuse lower abdominal pain. Denies recent surgeries or hospitalizations, hemoptysis, recent antibiotic use, dysuria or hematuria. States she had fever 104 home today but did not take any antipyretics. <Billie Meadows PA-C - Last Filed: 09/07/24 18:28> Related Data Home Medications: Home Medications Medication Instructions Recorded Confirmed alprazolam 1 mg tablet 1 mg PO TID 02/09/22 05/26/24 cyclobenzaprine 10 mg tablet 10 mg PO HS 02/09/22 05/26/24 omeprazole 20 mg capsule,delayed 20 mg PO DAILY 02/09/22 05/26/24 release albuterol sulfate 90 mcg/actuation 2 inh inhalation PRN PRN Shortness 04/16/22 05/26/24 aerosol inhaler Of Breath <Wen Quick PA-C - Last Filed: 09/07/24 14:53> Allergies/Adverse Reactions: Allergies Allergy/AdvReac Type Severity Reaction Status Date / Time hydrocodone Allergy Itching Verified 09/07/24 16:41 <Wen Quick PA-C - Last Filed: 09/07/24 14:53> Review of Systems Review of Systems: All systems reviewed & are unremarkable except as noted in HPI and below <Billie Meadows PA-C - Last Filed: 09/07/24 18:28> PMFSH Past Medical History Medical History: Medical History Adhesive capsulitis of left shoulder Anxiety Arthritis of left shoulder region Arthritis of right knee Arthrogryposis Callus of foot Cervical spondylosis with radiculopathy Deformity of toe of right foot Depression Dyspnea Peroneal tendinitis of left lower leg Trochanteric bursitis of left hip Vision loss <Wen Quick PA-C - Last Filed: 09/07/24 14:53> Surgical History Surgical History: Surgical History H/O foot surgery Left hammertoe correction 04/22/14, 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 History of surgery on arm Right partial ulna removal 08/17/10 <Wen Quick PA-C - Last Filed: 09/07/24 14:53> Family History Family History: Family History Mother Patient's mother is in good health Father Family history of chronic obstructive pulmonary disease Family history of coronary artery disease Other Family history of tuberculosis No family history of diabetes mellitus <Wen Quick PA-C - Last Filed: 09/07/24 14:53> Social History Social History: Social History Smoking packs per day: 0.5 Smoking cigarettes per day: 10.0 Years smoked: 48 Smoking pack-years: 24.00 Smoking status: Current every day smoker Tobacco type: cigarettes Alcohol intake: current Alcohol use details: Socail drinker Substance use: current Substance use type: marijuana Other substance usage details: SMOKES OCC. Last use: 04/12/22 Living arrangements: with family Spiritual care concerns: No <Wen Quick PA-C - Last Filed: 09/07/24 14:53> Exam Narrative: GENERAL: Well-appearing, well-nourished, and in no acute distress. HEAD: Normocephalic, atraumatic. EYES: PERRLA and EOMI. ENT: Nares clear, no rhinorrhea or epistaxis. Mucous membranes moist. NECK: Supple. No nuchal rigidity CHEST: Diffuse inspiratory and expiratory wheezing throughout all lung valdez. Satting 96% on room air in no respiratory distress. Speaking in full sentences. HEART: Regular rate and rhythm. No murmur heard. Normal peripheral pulses. ABDOMEN: Normoactive bowel sounds. Abdomen soft with minimal tenderness in the lower quadrants and suprapubic region. No rebound, guarding or rigidity. No CVA tenderness. EXTREMITIES: Normal range of motion. No edema. SKIN: Warm, dry, no rash. NEURO: No focal deficits. Alert and oriented x3 <CHRISTIE Reece Last Filed: 09/07/24 18:28> Course Vital Signs Vital signs: Vital Signs Temperature 98 F 09/07/24 14:13 Pulse Rate 96 09/07/24 14:13 Respiratory Rate 18 09/07/24 14:13 Blood Pressure 107/87 09/07/24 14:13 Pulse Oximetry 96 09/07/24 14:13 Oxygen Delivery Room Air 09/07/24 14:13 Temperature 98.6 F 09/07/24 16:35 Pulse Rate 104 H 09/07/24 18:07 Respiratory Rate 18 09/07/24 18:03 Blood Pressure 109/60 09/07/24 18:07 Pulse Oximetry 99 09/07/24 18:03 Oxygen Delivery Room Air 09/07/24 16:40 <CHRISTIE Foley Last Filed: 09/07/24 14:53> Vital Signs Temperature 98 F 09/07/24 14:13 Pulse Rate 96 09/07/24 14:13 Respiratory Rate 18 09/07/24 14:13 Blood Pressure 107/87 09/07/24 14:13 Pulse Oximetry 96 09/07/24 14:13 Oxygen Delivery Room Air 09/07/24 14:13 Temperature 98.6 F 09/07/24 16:35 Pulse Rate 104 H 09/07/24 18:07 Respiratory Rate 18 09/07/24 18:03 Blood Pressure 109/60 09/07/24 18:07 Pulse Oximetry 99 09/07/24 18:03 Oxygen Delivery Room Air 09/07/24 16:40 <CHRISTIE Reece Filed: 09/07/24 18:28> MDM - Chest Pain MDM Narrative Medical decision making narrative: MSE by MAYO in triage. <Wen Quick PA-C - Last Filed: 09/07/24 14:53> MSE by MAYO in triage. 64-year-old female with history of RA presents to emergency department for multiple medical complaints including N/V/D, generalized malaise, abdominal pain, chest pain, productive cough, shortness of breath, dizziness. Triage vitals are stable. She is afebrile upon arrival and nontoxic appearing. Exam is significant for the above. Lab work obtained in triage shows no leukocytosis no anemia. Chemistries are unremarkable with no electrolyte derangements. Alk-phos is elevated to 214, no prior for comparison. Remainder of LFTs are unremarkable. COVID, flu RSV are negative. Lipase is normal. EKG shows sinus tachycardia with sinus arrhythmia right axis deviation, Q-waves in inferior leads, no ST elevations or depressions. Initial troponin is undetectable. COVID, flu RSV are negative. D-dimer is elevated to 0.95. Will obtain CTA chest PE and CT abd/pelvis and provide duoneb and solumedrol for likely COPD exacerbation. She has received 1L of fluids, 25 mg of meclizine and 1 g of Tylenol the time of my evaluation. CTA chest PE with abdomen pelvis shows the followin. No pulmonary embolus. 2. Airspace opacities involving left upper lobe and superior segment left lower lobe with slight worsening from 02/26/2024, likely a combination of pneumonia and scarring. 3. Mild mediastinal lymphadenopathy, likely reactive. 4. 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 5. 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 Patient updated on workup. She reports significant improvement after breathing treatment and Solu-Medrol. I suspect her symptoms are secondary to pneumonia. I have very low suspicion for right hip septic arthritis. She has no pain to the hip whatsoever, no erythema or warmth to the hip. She has full active and passive range of motion to the hip without difficulty or pain. She denies known history of subclavian steal syndrome but given reconstitution this is likely chronic. Suspect her acute symptoms are secondary to pneumonia. Discussed with her that she may need outpatient vascular intervention. Plan to admit to the hospitalist for IV antibiotics. Discussed with [employer] hospitalist, Adelso, who agrees with plan for admission. <Billie Meadows PA-C - Last Filed: 09/07/24 18:28> Lab Data Result diagrams: 09/07/24 14:24 09/07/24 14:24 <Wen Quick PA-C - Last Filed: 09/07/24 14:53> Labs: Lab Results 09/07/24 09/07/24 09/07/24 Range/Units 14:24 14:34 17:05 WBC 6.0 (4.5-10.0) K/mm3 RBC 4.65 (4.2-5.4) M/mm3 Hgb 13.2 (12.0-15.0) g/dL Hct 40.2 (37.0-47.0) % MCV 86.5 (80-100) fl MCH 28.4 (26-34) pg MCHC 32.8 (32-36) g/dl RDW 14.3 (11.5-14.5) % Plt Count 133 L (150-375) k/mm3 MPV 11.9 H (7.4-10.4) fl Immature Gran % (Auto) 0.5 (0-0.5) % Neut % (Auto) 68.9 (45.5-73.1) % Lymph % (Auto) 17.8 L (18.3-44.2) % Anson % (Auto) 11.8 H (2.6-8.5) % Eos % (Auto) 0.5 (0-4.4) % Baso % (Auto) 0.5 (0.2-1.2) % Lymph # (Auto) 1.07 (0.9-3.2) K/mm3 Anson # (Auto) 0.7 H (0.1-0.6) K/mm3 Eos # (Auto) 0.0 (0-0.3) K/mm3 Baso # (Auto) 0.0 (0.0-0.1) K/mm3 Abs Immat Gran (auto) 0.03 (0.00-0.031) K/mm3 Absolute Neuts (auto) 4.2 (1.3-6.7) K/mm3 Absolute Nucleated RBC 0.000 (0.0-0.012) K/mm3 Nucleated RBC % 0.0 (0.0-0.2) % % Immature Plt Fraction 9.4 (0.9-11.2) % PT 13.6 (11.1-14.7) Seconds INR 1.0 APTT <= 20.0 L (22.3-36.8) Seconds D-Dimer 0.95 H (<0.48) ug/mL Sodium 136 L (137-145) mmol/L Potassium 4.3 (3.4-5.0) mmol/L Chloride 104 (98-107) mmol/L Carbon Dioxide 23 (22-30) mmol/L Anion Gap 9 (4-12) mmol/L BUN 13 (7-17) mg/dL Creatinine 0.70 (0.7-1.0) mg/dL Estim Creat Clear Calc 56 ml/min Estimated GFR > 60 (59 - ) Glucose 104 (65-110) mg/dL Calcium 9.1 (8.4-10.2) mg/dL Magnesium 1.9 (1.6-2.3) mg/dL Total Bilirubin 1.0 (0.2-1.3) mg/dL AST 34 (14-36) U/L ALT 17 (6-35) U/L Alkaline Phosphatase 214 H (38-126) U/L Troponin I < 0.012 < 0.012 (0.000-0.034) ng/mL NT-Pro-B Natriuret Pep Pending Total Protein 8.0 (6.3-8.2) g/dL Albumin 4.7 (3.5-5.1) g/dL Lipase 133 (23-300) U/L Influenza A (RT-PCR) Negative (Negative) Influenza B (RT-PCR) Negative (Negative) RSV (RT-PCR) Negative (Negative) SARS-CoV-2 RNA (RT-PCR) Negative (Negative) <Wen Quick PA-C - Last Filed: 09/07/24 14:53> Lab Results 09/07/24 09/07/24 09/07/24 Range/Units 14:24 14:34 17:05 WBC 6.0 (4.5-10.0) K/mm3 RBC 4.65 (4.2-5.4) M/mm3 Hgb 13.2 (12.0-15.0) g/dL Hct 40.2 (37.0-47.0) % MCV 86.5 (80-100) fl MCH 28.4 (26-34) pg MCHC 32.8 (32-36) g/dl RDW 14.3 (11.5-14.5) % Plt Count 133 L (150-375) k/mm3 MPV 11.9 H (7.4-10.4) fl Immature Gran % (Auto) 0.5 (0-0.5) % Neut % (Auto) 68.9 (45.5-73.1) % Lymph % (Auto) 17.8 L (18.3-44.2) % Anson % (Auto) 11.8 H (2.6-8.5) % Eos % (Auto) 0.5 (0-4.4) % Baso % (Auto) 0.5 (0.2-1.2) % Lymph # (Auto) 1.07 (0.9-3.2) K/mm3 Anson # (Auto) 0.7 H (0.1-0.6) K/mm3 Eos # (Auto) 0.0 (0-0.3) K/mm3 Baso # (Auto) 0.0 (0.0-0.1) K/mm3 Abs Immat Gran (auto) 0.03 (0.00-0.031) K/mm3 Absolute Neuts (auto) 4.2 (1.3-6.7) K/mm3 Absolute Nucleated RBC 0.000 (0.0-0.012) K/mm3 Nucleated RBC % 0.0 (0.0-0.2) % % Immature Plt Fraction 9.4 (0.9-11.2) % PT 13.6 (11.1-14.7) Seconds INR 1.0 APTT <= 20.0 L (22.3-36.8) Seconds D-Dimer 0.95 H (<0.48) ug/mL Sodium 136 L (137-145) mmol/L Potassium 4.3 (3.4-5.0) mmol/L Chloride 104 (98-107) mmol/L Carbon Dioxide 23 (22-30) mmol/L Anion Gap 9 (4-12) mmol/L BUN 13 (7-17) mg/dL Creatinine 0.70 (0.7-1.0) mg/dL Estim Creat Clear Calc 56 ml/min Estimated GFR > 60 (59 - ) Glucose 104 (65-110) mg/dL Calcium 9.1 (8.4-10.2) mg/dL Magnesium 1.9 (1.6-2.3) mg/dL Total Bilirubin 1.0 (0.2-1.3) mg/dL AST 34 (14-36) U/L ALT 17 (6-35) U/L Alkaline Phosphatase 214 H (38-126) U/L Troponin I < 0.012 < 0.012 (0.000-0.034) ng/mL NT-Pro-B Natriuret Pep Pending Total Protein 8.0 (6.3-8.2) g/dL Albumin 4.7 (3.5-5.1) g/dL Lipase 133 (23-300) U/L Influenza A (RT-PCR) Negative (Negative) Influenza B (RT-PCR) Negative (Negative) RSV (RT-PCR) Negative (Negative) SARS-CoV-2 RNA (RT-PCR) Negative (Negative) <Billie Meadows PA-C - Last Filed: 09/07/24 18:28> Discharge Plan Discharge Clinical Impression: Atypical chest pain, Pneumonia, Subclavian steal syndrome <Wne Quick PA-C - Last Filed: 09/07/24 14:53> Patient Disposition: Still a Patient <CHRISTIE Foley Last Filed: 09/07/24 14:53> Condition: Stable <CHRISTIE Foley Last Filed: 09/07/24 14:53> Prescriptions: No Action guaifenesin 600 mg tablet extended release 12hr 1,200 mg PO BID Qty: 60 3RF albuterol sulfate 90 mcg/actuation HFA aerosol inhaler 2 inh INHALATION PRN PRN (Reason: Shortness Of Breath) cyclobenzaprine 10 mg tablet 10 mg PO HS alprazolam 1 mg tablet 1 mg PO TID omeprazole 20 mg capsule,delayed release(DR/EC) 20 mg PO DAILY hydrocodone-acetaminophen 5-325 mg tablet 1 tablet PO Q6H PRN (Reason: pain) Qty: 30 0RF <Wen Quick PA-C - Last Filed: 09/07/24 14:53> Follow-up/Referrals: Justin Anne MD [Primary Care Provider] - <Wen Quick PA-C - Last Filed: 09/07/24 14:53>
[2024-09-07] MEDS: ACETAMINOPHEN 500 MG TABLET 1000 MG PO (14:37)
[2024-09-07] MEDS: MECLIZINE HCL 25 MG TABLET PO (14:37)
[2024-09-07 14:44] LABS: Basophils Percent Auto 0.5 % (0.2-1.2); Eosinophils Percent Auto 0.5 % (0-4.4); Hematocrit 40.2 % (37.0-47.0); Hemoglobin 13.2 g/dL (12.0-15.0); Immature Granulocyte Absolute 0.03 K/mm3 (0.00-0.031); Immature Granulocyte Percent A 0.5 % (0-0.5); Immature Platelet Fraction Pct 9.4 % (0.9-11.2); Lymphocytes Absolute Auto 1.07 K/mm3 (0.9-3.2); Lymphocytes Percent Auto 17.8 % (18.3-44.2); Mean Corpuscular HGB Conc 32.8 g/dl (32-36); Mean Corpuscular Hemoglobin 28.4 pg (26-34); Mean Corpuscular Volume 86.5 fl (80-100); Mean Platelet Volume 11.9 fl (7.4-10.4); Monocytes Absolute Auto 0.7 K/mm3 (0.1-0.6); Monocytes Percent Auto 11.8 % (2.6-8.5); Neutrophils Absolute Auto 4.2 K/mm3 (1.3-6.7); Neutrophils Percent Auto 68.9 % (45.5-73.1); Platelet Count Result 133 k/mm3 (150-375); Red Blood Count 4.65 M/mm3 (4.2-5.4); Red Cell Distribution Width 14.3 % (11.5-14.5)
[2024-09-07 14:54] LABS: Alanine Aminotransferase 17 U/L (6-35); Albumin Level 4.7 g/dL (3.5-5.1); Alkaline Phosphatase 214 U/L (38-126); Anion Gap 9 mmol/L (4-12); Aspartate Amino Transferase 34 U/L (14-36); Blood Urea Nitrogen 13 mg/dL (7-17); Calcium 9.1 mg/dL (8.4-10.2); Carbon Dioxide 23 mmol/L (22-30); Chloride 104 mmol/L (98-107); Estimated CRCL calculation 56 ml/min; Estimated Glomerular Filt Rate > 60; Glucose 104 mg/dL (65-110); Lipase 133 U/L (23-300); Potassium 4.3 mmol/L (3.4-5.0); Sodium 136 mmol/L (137-145)
[2024-09-07 14:57] LABS: Prothrombin Time 13.6 Seconds (11.1-14.7)
[2024-09-07 15:05] LABS: Troponin I < 0.012 ng/mL (0.000-0.034)
[2024-09-07 15:10] LABS: D Dimer 0.95 ug/mL (<0.48); Partial Thromboplastin Time <= 20.0 Seconds (22.3-36.8)
[2024-09-07 15:21] LABS: Influenza A QL RT-PCR Negative (Negative); Influenza B QL RT-PCR Negative (Negative); RSV RNA, RT-PCR Negative (Negative); SARS-CoV-2 RNA PCR Negative (Negative)
[2024-09-07] MEDS: SODIUM CHLORIDE 0.9% IV 1,000 ML 999 ML IV CONT (16:43)
--- NOTE | 2024-09-07 16:58 | ECG_ITS ---
Test Date: 2024-09-07 17:07:38 Measurements Intervals [place]all Rate: 97 P: 87 MD: 142 QRS: 98 QRSD: 92 T: 64 QT: 340 QTc: 433 Interpretive Statements SINUS RHYTHM RIGHT AXIS DEVIATION INCOMPLETE RIGHT BUNDLE BRANCH BLOCK MINIMAL Q WAVES- INF/LAT LEADS BASELINE ARTIFACT- I, III, AVR, AVL, AVF BORDERLINE ECG Compared to ECG 09/07/2024 14:19:30 HEART RATE HAS DECREASED Electronically Signed On 09-07-2024 18:54:04 [employer]PER[employer] by Woody Peres D.O.
[2024-09-07] MEDS: methylPREDNISolone SOD SUCC 125 MG VIAL IV PUSH (17:20)
[2024-09-07 17:33] LABS: Troponin I < 0.012 ng/mL (0.000-0.034)
--- NOTE | 2024-09-07 17:36 | PC.NURSE ---
Pt to CT via stretcher at this time.
[2024-09-07] MEDS: IPRATROPIUM 0.5 MG/ALBUTEROL SULFATE 2.5 MG AMPUL.NEB 3 ML INHALATION ×3 (17:42)
[2024-09-07 18:14] LABS: Magnesium 1.9 mg/dL (1.6-2.3)
[2024-09-07 18:24] LABS: NT Pro B Type Natriuretic Pept 157 pg/mL (19.9-100)
[2024-09-07] MEDS: AZITHROMYCIN 500 MG/NS 250 ML 500 MG/250 ML BAG 250 MG IVPB (19:13)
[2024-09-07 19:29] LABS: Lactic Acid Reflex 1.3 mmol/L (0.7-2.0)
[2024-09-07 19:46] LABS: Add Urine Microscopic? YES; Appearance Urine Clear (Clear); Bacteria Urine None Seen /hpf; Bilirubin Urine Negative (Negative); Blood Urine Negative (Negative); Color Urine Yellow (Yellow); Glucose Urine UA Negative (Negative); Ketones Urine Negative (Negative); Leukocyte Esterase Ur 1+ LEU/UL (Negative); Need Manual Microscopic Reviewed; Nitrate Urine Negative (Negative); Non Pathogenic Casts 0-2; Protein Urine Negative (Negative); RBC Urine 0-2 /hpf (0-2); Specific Grav Ur 1.025 (1.001-1.035); Squamous Epithelial Cell Urine Occasional /hpf (Few); Urobilinogen Urine 0.2 mg/dL (<2.0); WBC Urine 0-5 /hpf (0-3)
[2024-09-07] MEDS: MORPHINE SULFATE (*CRX) 2 MG/ML INJ IV PUSH (20:13)
--- NOTE | 2024-09-07 20:52 | PM.IMHP ---
H&P: HPI History of Present Illness Date/Time: 09/07/24 20:52 Chief Complaint: cough Narrative: This is a 64-year-old female with past medical history significant for interstitial lung disease, bronchiectasis GILDARDO, arthritis. patient presents to the emergency room due to cough productive of white sputum, shortness of breath, nausea, vomiting, generalized weakness, lightheadedness, poor appetite, diarrhea, chills, generalized malaise, body aches and pains. Preliminary workup was significant for CT angiogram of the chest showed left upper lobe pneumonia. Patient has been admitted for further evaluation management and treatment. XR chest 2V Ordering provider: Lennox Frye History: 64 years Female with . chest pain, SOB . Comparison: None. FINDINGS: MEDIASTINUM: The cardiac silhouette is not enlarged. LUNGS: No infiltrates, effusions or pneumothorax. Emphysematous changes of the lungs. Elevation of the left hilum is seen. Adjacent nodule cannot be excluded. CT evaluation advised. OTHER: No free air under the diaphragm. IMPRESSION: No acute cardiopulmonary pathology. Elevation of the left hemidiaphragm with possibility of adjacent nodule cannot be excluded. CT evaluation advised. CT brain wo con Ordering provider: Wen Quick PA-C History: 64 years Female with . dizziness . Comparison: None. Technique: CT of the head without contrast. Radiation reduction technique utilized.The dose-length product was 681 mGy-cm. FINDINGS: BRAIN PARENCHYMA AND CSF SPACES: Mild leukoaraiosis and diffuse cortical atrophy. Mild atheromatous disease. No midline shift, mass effect or hemorrhage. The brain parenchyma and CSF spaces are otherwise normal. VISUALIZED PARANASAL SINUSES: Well aerated. MASTOIDS: Well aerated. BONES: The bones appear intact. SOFT TISSUES: Visualized nasopharynx is normal. Superficial soft tissues are normal. IMPRESSION: No acute intracranial findings. EXAMINATION: CTA chest PE abdomen pel DATE: 09/07/2024 17:38 INDICATION: Chest pain. TECHNIQUE: Computed tomography angiography (CTA) of the chest was performed with 100 mL Omnipaque-350 intravenous contrast timed to evaluate the pulmonary arteries. Coronal maximum intensity projection 3D-reconstructions were created by the technologist. Computed tomography (CT) of the abdomen and pelvis was performed with intravenous contrast. Automated exposure control and iterative reconstruction technique were employed. The dose-length product was 460.75 mGy-cm. COMPARISON: Chest CT 02/26/2024, CT abdomen and pelvis 07/14/2017 FINDINGS: CTA chest: There is scarring at the lung apices. There is mosaic attenuation in the lungs, likely small airways disease. There is a pneumatocele left lower lobe. There is mild atelectasis bilaterally. There are airspace opacities in left upper lobe and superior segment left lower lobe. No pleural effusion. There is total occlusion of the right subclavian artery with reconstitution of flow from the vertebral artery. The heart size is normal. No pericardial effusion. There is no pulmonary embolus. There is mild mediastinal lymphadenopathy, likely reactive. There is a small sliding hiatal hernia. There is moderate thoracic spondylosis. CT abdomen and pelvis: The liver and spleen are normal. There are changes of cholecystectomy. The pancreas and adrenal glands are normal. There are cysts in the kidneys measuring up to 11 mm on the left. The bladder is distended. There are no dilated loops of bowel. There are no pathologically enlarged lymph nodes. There is no free intraperitoneal fluid. There is a total right hip arthroplasty. There are lucencies in the ilium adjacent to the acetabular cup, consistent with osteolysis. There is internal fixation of left femur. There is severe lumbar spondylosis. IMPRESSION: 1. No pulmonary embolus. 2. Airspace opacities involving left upper lobe and superior segment left lower lobe with slight worsening from 02/26/2024, likely a combination of pneumonia and scarring. 3. Mild mediastinal lymphadenopathy, likely reactive. 4. 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 5. 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 Review of Systems Review of Systems: cough productive of sputum, shortness of breath, lightheadedness, generalized weakness, poor appetite, nausea, vomiting. 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 History of surgery on arm Right partial ulna removal 08/17/10 Family History Family History Mother Patient's mother is in good health Father Family history of chronic obstructive pulmonary disease Family history of coronary artery disease Other Family history of tuberculosis No family history of diabetes mellitus Social History Social History Smoking packs per day: 0.5 Smoking cigarettes per day: 10.0 Years smoked: 48 Smoking pack-years: 24.00 Smoking status: Current every day smoker Additional smoking assessment comments: pt states she has not smoked since 09/03/24 and does not intend to restart Alcohol intake: current Alcohol use details: Socail drinker Substance use: current Substance use type: marijuana Other substance usage details: SMOKES OCC. Do You Feel Safe in your Home?: Yes Lack of Transportation: No Lack of Food: Often True Current Housing: I Have Housing Concerned About Future Housing: No Difficulty Paying Gas/Electric Bills: No Difficulty Paying for Meds: No Currently Unemployed: No Education: Grade School Difficulty w/ Childcare or Family Care: No Living arrangements: with family Spiritual care concerns: No Meds Home Medications and Allergies Home Medications Medication Instructions Recorded Confirmed Type alprazolam 1 mg tablet 1 mg PO TID PRN Anxiety 02/09/22 09/07/24 History cyclobenzaprine 10 mg tablet 10 mg PO HS 02/09/22 09/07/24 History omeprazole 20 mg capsule,delayed 20 mg PO DAILY 02/09/22 09/07/24 History release albuterol sulfate 90 mcg/actuation 2 inh inhalation PRN PRN Shortness 04/16/22 09/07/24 History aerosol inhaler Of Breath fluoxetine 20 mg capsule 20 mg PO DAILY 09/07/24 09/07/24 History pregabalin 75 mg capsule 75 mg PO BID 09/07/24 09/07/24 History Allergies Allergy/AdvReac Type Severity Reaction Status Date / Time hydrocodone Allergy Itching Verified 09/07/24 19:56 Vital Signs Vital Signs - 24 hr 09/07/24 14:13 09/07/24 16:35 09/07/24 16:38 Temperature 98 F 98.6 F Pulse Rate 96 115 H 121 H Respiratory Rate 18 20 Blood Pressure 107/87 141/56 H Pulse Oximetry 96 100 Oxygen Delivery Room Air 09/07/24 16:40 09/07/24 17:42 09/07/24 17:57 Temperature Pulse Rate 94 95 Respiratory Rate 30 H 36 H Blood Pressure Pulse Oximetry 96 Oxygen Delivery Room Air 09/07/24 18:03 09/07/24 18:05 09/07/24 18:06 Temperature Pulse Rate 97 99 98 Respiratory Rate 18 Blood Pressure 144/59 H 139/61 133/73 Pulse Oximetry 99 Oxygen Delivery 09/07/24 18:07 09/07/24 19:14 09/07/24 20:07 Temperature Pulse Rate 104 H 96 89 Respiratory Rate 35 H 20 Blood Pressure 109/60 140/59 L 138/87 Pulse Oximetry 96 100 Oxygen Delivery Exam Narrative: Laying in bed Const: General: comfortable, no acute distress, well developed, alert, awake and average body habitus Nutritional Appearance: thin Orientation/consciousness: patient oriented x3 Other: left hand digit deformity since right foot amputation of all toes since HENMT: Head: normal to inspection, normocephalic and atraumatic Ears: hearing grossly normal bilaterally Face/Nose/Sinus: normal facial exam Face and sinus: normal facial exam Eyes: General: appearance normal, both eyes and all related structures Pupils: Equal, round and reactive pupils present EOM: EOMs intact bilaterally Neck: Neck: full ROM, no lymphadenopathy and no JVD Thyroid: thyroid normal Lymphatic: no lymphadenopathy noted Resp: Effort & Inspection: normal respiratory effort and able to speak in complete sentences Auscultation: crackles on the right and diminished lung sounds Cardio: Jugular venous distension: no JVD Rate: regular rate Rhythm: regular rhythm Heart sounds: S1 normal heart sound present and S2 normal heart sound present GI: GI Palp: Yes Soft to palpation and Yes No hepatosplenomegaly present : General: Yes deferred Skin: Rashes: no rashes Wounds: no wounds Neuro: General: patient oriented x3 and CN's II-XI intact bilaterally Cranial nerves: Yes CN's II-XII intact bilaterally and Yes Equal, round and reactive pupils present Cognition (Neuro): normal cognition Speech: normal speech Gait exam (Neuro): Unable to assess gait Motor exam (neuro): 5/5 motor strength present throughout Extrem: General: normal to inspection, full ROM, no joint enlargement and no pedal edema Hand/finger images: 1. missing MIP and DIP Ankle/foot/toe images: 1. amputation of all 5 toes H&P: Results Labs Labs: Short CBC 09/07/24 Range/Units 14:24 WBC 6.0 (4.5-10.0) K/mm3 Hgb 13.2 (12.0-15.0) g/dL Hct 40.2 (37.0-47.0) % Plt Count 133 L (150-375) k/mm3 BMP 09/07/24 14:24 Sodium 136 L Potassium 4.3 Chloride 104 Carbon Dioxide 23 BUN 13 Creatinine 0.70 Glucose 104 Calcium 9.1 Cardiac Enzymes 09/07/24 09/07/24 Range/Units 14:24 17:05 Troponin I < 0.012 < 0.012 (0.000-0.034) ng/mL Liver Function 09/07/24 Range/Units 14:24 Total Bilirubin 1.0 (0.2-1.3) mg/dL AST 34 (14-36) U/L ALT 17 (6-35) U/L Alkaline Phosphatase 214 H (38-126) U/L Albumin 4.7 (3.5-5.1) g/dL Urine 09/07/24 Range/Units 18:35 Urine Color Yellow (Yellow) Urine Appearance Clear (Clear) Urine pH 6.0 (5.0-9.0) Ur Specific Belding 1.025 (1.001-1.035) Urine Protein Negative (Negative) mg/dL Urine Glucose (UA) Negative (Negative) mg/dL Assessment and Plan Assessment and plan (1) Pneumonia: Qualifiers: Laterality: left Lung location: upper lobe of lung Pneumonia type: due to unspecified organism Qualified Code(s): J18.9 - Pneumonia, unspecified organism Code(s): J18.9 - Pneumonia, unspecified organism Status: Acute Assessment and Plan: admit to regular medical floor started on Rocephin and Zithromax cultures in progress (2) ILD (interstitial lung disease): Code(s): J84.9 - Interstitial pulmonary disease, unspecified Status: Acute Assessment and Plan: follow-up in outpatient setting (3) Bronchiectasis: Code(s): J47.9 - Bronchiectasis, uncomplicated Status: Acute Assessment and Plan: continue to monitor (4) GERD (gastroesophageal reflux disease): Code(s): K21.9 - Gastro-esophageal reflux disease without esophagitis Status: Acute Assessment and Plan: PPI Hospitalist MIPS Advance Care Plan I have confirmed that the patient's Advanced Care Plan is present, code status is documented, or surrogate decision maker is listed in patient medical record.: Yes Medication Reconciliation I have utilized all available resources to obtain, update and review the patients current medications (includes all prescriptions, OTC, herbals, cannabis, and nutritional supplements).: Yes
[2024-09-07 22:00] LABS: Troponin I < 0.012 ng/mL (0.000-0.034)
[2024-09-07] MEDS: ALPRAZolam (*CRX) 0.5 MG TABLET 1 MG PO (23:55)
[2024-09-07] MEDS: MORPHINE SULFATE (*CRX) 2 MG/ML INJ 1 MG IV PUSH (23:55)
[2024-09-08 05:28] VITALS: BP 120/56; PULSE 72; RESP 16; TEMP 36.3; O2SAT 99
[2024-09-08] MEDS: PANTOPRAZOLE 40 MG TABLET PO (08:10)
[2024-09-08] MEDS: FLUoxetine HCL 20 MG CAPSULE PO (08:10)
[2024-09-08] MEDS: PREGABALIN (*CRX) 75 MG CAPSULE PO (08:10)
--- NOTE | 2024-09-08 08:47 | P.PNIM_ITS ---
Progress Note: A&P Assessment and Plan (1) Pneumonia: Qualifiers: Laterality: left Lung location: upper lobe of lung Pneumonia type: due to unspecified organism Qualified Code(s): J18.9 - Pneumonia, unspecified organism Code(s): J18.9 - Pneumonia, unspecified organism Status: Acute Assessment and Plan: * Chest abdomen pelvis CTA was negative for PE, shown pneumonia in the left upper and superior left lower lobe * Chest x-ray was negative * Blood cultures obtained and are pending * Continue Rocephin and Azithromycin for community-acquired pneumonia * MRSA negative * Will also check urine strep, urine Legionella, mycoplasma * Blood cell count 6.0, she is afebrile * Procalcitonin 0.1 * Continue DuoNebs (2) ILD (interstitial lung disease): Code(s): J84.9 - Interstitial pulmonary disease, unspecified Status: Acute Assessment and Plan: * Noted on CT * See above for details (3) GERD (gastroesophageal reflux disease): Code(s): K21.9 - Gastro-esophageal reflux disease without esophagitis Status: Acute Assessment and Plan: * Continue Protonix (4) Subclavian steal syndrome: Code(s): G45.8 - Other transient cerebral ischemic attacks and related syndromes Status: Acute Assessment and Plan: * CTA of the chest/abdomen/pelvis was negative for PE, shown pneumonia, mild mediastinal lymphadenopathy, total occlusion of the right subclavian artery with reconstitution, consistent with subclavian steal syndrome * May need to see vascular as an outpatient for follow up. 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 * If no improvement, consider hematology consult Time Spent With Patient Time with patient: 25 - 35 minutes Subjective Date/time seen: 09/08/24 08:47 Interval history: Interval history: This is a 64-year-old female who presented to the hospital on 09/07/2024 with complaints dizziness, fever of 104, shortness of breath, cough, pain across her upper chest, nausea, vomiting, diarrhea, abdominal pain, headache since last . Chest x-ray was negative. CT of the brain was negative. Chest/abdomen/pelvis CTA was negative for PE, showed airspace opacities involving left upper lobe and superior segment of the left lower lobe, mild mediastinal lymphadenopathy, total occlusion the right subclavian artery with reconstitution consistent with subclavian steal syndrome, total right hip arthroplasty with osteolysis. Initial labs showed a normal white blood cell count of 6.0, platelet count of 133, D-dimer 0.95, INR 1.0, sodium 136, lactic acid was normal at 1.3, alk-phos 214, troponin negative x3, proBNP 157, lipase normal at 133. UA was obtained which showed little +leukocyte, otherwise negative. Respiratory panel was negative for influenza a and B, RSV, COVID. Blood and urine cultures were obtained and are currently pending. Patient was started on Rocephin and azithromycin, given a dose of meclizine, DuoNeb, Solu- Medrol, and morphine while in the ED. Subjective: Patient denies any fever, nausea, vomiting, diarrhea, abdominal pain, chest pain, shortness of breath. Patient endorses chills, diaphoresis, shortness of breath with activity. She also reports productive cough with yellow sputum as well. She states that she smokes 1/2 a pack of cigarettes a day for the past 50 years and would like to quit considering the last time she had a cigarette was of last week. Labs and imaging reviewed. Review of Systems Review of Systems: All systems reviewed & are unremarkable except as noted in HPI and below Constitutional: Constitutional: Reports as per HPI and Reports no additional constitutional complaints Eyes: Eyes: Reports as per HPI and Reports no additional eye complaints ENT: Reports system reviewed and no additional complaints, except as documented and Reports as per HPI Cardiovascular: Cardiovascular: Reports as per HPI and Reports no additional cardiovascular complaints Respiratory: Respiratory: Reports as per HPI and Reports no additional respiratory complaints Gastrointestinal: Gastrointestinal: Reports as per HPI and Reports no additional gastrointestinal complaints Genitourinary: Genitourinary: Reports no additional female genitourinary complaints and Reports as per HPI Musculoskeletal: Musculoskeletal: Reports no additional musculoskeletal complaints and Reports as per HPI Integumentary/Breasts: Skin/Breast: Reports system reviewed and no additional complaints, except as docu and Reports as per HPI Neurologic: Reports system reviewed and no additional complaints, except as documented and Reports as per HPI Psychiatric: Psychiatric: Reports no additional psychiatric complaints and Reports as per HPI Exam Narrative: General: In no acute distress, well nourished Head: atraumatic, no encephalopathy Eyes: PERRLA, sclera clear ENT: moist mucous membranes, nasal passages clear Neck: supple, no JVD, no adenopathy, trachea midline Cardiac: Normal S1 and S2. No murmur, gallops or friction rubs, peripheral pulses intact. Respiratory: Wheezing and Rhonchi in right > left, no other adventitious lung sounds, currently on room air, no respiratory distress or use of accessory muscles. Gastrointestinal: soft, non-distended, non-tender, normoactive bowel sounds. : voiding without difficulty. Extremities: moves all extremities well, no edema, good ROM, strength 5/5 Skin: clean, dry, intact. No wounds or lesions. Neuro: Alert and oriented x4, cranial nerves intact, no neuro deficits. Psych: normal mood, normal affect, interactive Objective Data Vital Signs Vital Signs: Vital Signs - 24 hr 09/07/24 14:13 09/07/24 16:35 09/07/24 16:38 Temperature 98 F 98.6 F Pulse Rate 96 115 H 121 H Respiratory Rate 18 20 Blood Pressure 107/87 141/56 H Pulse Oximetry 96 100 Oxygen Delivery Room Air 09/07/24 16:40 09/07/24 17:42 09/07/24 17:57 Temperature Pulse Rate 94 95 Respiratory Rate 30 H 36 H Blood Pressure Pulse Oximetry 96 Oxygen Delivery Room Air 09/07/24 18:03 09/07/24 18:05 09/07/24 18:06 Temperature Pulse Rate 97 99 98 Respiratory Rate 18 Blood Pressure 144/59 H 139/61 133/73 Pulse Oximetry 99 Oxygen Delivery 09/07/24 18:07 09/07/24 19:14 09/07/24 20:07 Temperature Pulse Rate 104 H 96 89 Respiratory Rate 35 H 20 Blood Pressure 109/60 140/59 L 138/87 Pulse Oximetry 96 100 Oxygen Delivery 09/07/24 21:06 09/07/24 20:40 09/08/24 05:28 Temperature 97.8 F 97.3 F L Pulse Rate 95 72 Respiratory Rate 20 16 Blood Pressure 143/67 H 120/56 L Pulse Oximetry 100 99 Oxygen Delivery Room Air Intake/Output Intake/Output: Intake & Output 09/05/24 09/06/24 09/07/24 09/08/24 23:59 23:59 23:59 23:59 Intake Total 1300 400 Balance 1300 400 Meds/Results Medications: Active Medications Generic Name Dose Route Start Last Admin Trade Name Freq PRN Reason Stop Dose Admin Albuterol 2 puff 09/07/24 23:18 Albuterol Sulfate (*Sp) Aerosol 1 Puff INHALATION PRN PRN Shortness Of Breath Alprazolam 1 mg 09/07/24 23:18 09/07/24 23:55 Alprazolam (*Crx) 0.5 Mg Tablet PO 1 mg TID PRN Administration Anxiety Cyclobenzaprine HCl 10 mg 09/08/24 21:00 Cyclobenzaprine Hcl 10 Mg Tablet PO HS DANA Fluoxetine HCl 20 mg 09/08/24 09:00 09/08/24 08:10 Fluoxetine Hcl 20 Mg Capsule PO 20 mg DAILY DANA Administration Ceftriaxone Sodium 1 gm in 50 mls @ 100 mls/hr 09/08/24 18:00 Rocephin 1 Gm/Ns 50 Ml IVPB Q24H DANA Azithromycin 500 mg in 250 mls @ 250 mls/hr 09/08/24 18:00 Zithromax IVPB Q24H DANA Pantoprazole Sodium 40 mg 09/08/24 09:00 09/08/24 08:10 Pantoprazole 40 Mg Tablet PO 40 mg QAM DANA Administration Pregabalin 75 mg 09/08/24 09:00 09/08/24 08:10 Pregabalin (*Crx) 75 Mg Capsule PO 75 mg BID DANA Administration Radiology Results: ITS Impressions Chest X-Ray 09/07/24 14:55 IMPRESSION: No acute cardiopulmonary pathology. Elevation of the left hemidiaphragm with possibility of adjacent nodule cannot be excluded. CT evaluation advised. Head CT 09/07/24 14:59 IMPRESSION: No acute intracranial findings. Chest/Abdomen/Pelvis CTA 09/07/24 17:44 IMPRESSION: 1. No pulmonary embolus. 2. Airspace opacities involving left upper lobe and superior segment left lower lobe with slight worsening from 02/26/2024, likely a combination of pneumonia and scarring. 3. Mild mediastinal lymphadenopathy, likely reactive. 4. 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 5. 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 Labs Labs: Laboratory Results - last 24 hr 09/07/24 09/07/24 09/07/24 14:24 14:34 17:05 WBC 6.0 RBC 4.65 Hgb 13.2 Hct 40.2 MCV 86.5 MCH 28.4 MCHC 32.8 RDW 14.3 Plt Count 133 L MPV 11.9 H Immature Gran % (Auto) 0.5 Neut % (Auto) 68.9 Lymph % (Auto) 17.8 L [place] % (Auto) 11.8 H Eos % (Auto) 0.5 Baso % (Auto) 0.5 Lymph # (Auto) 1.07 [place] # (Auto) 0.7 H Eos # (Auto) 0.0 Baso # (Auto) 0.0 Abs Immat Gran (auto) 0.03 Absolute Neuts (auto) 4.2 Absolute Nucleated RBC 0.000 Nucleated RBC % 0.0 % Immature Plt Fraction 9.4 PT 13.6 INR 1.0 APTT <= 20.0 L D-Dimer 0.95 H Sodium 136 L Potassium 4.3 Chloride 104 Carbon Dioxide 23 Anion Gap 9 BUN 13 Creatinine 0.70 Estim Creat Clear Calc 56 Estimated GFR > 60 Glucose 104 Lactic Acid Calcium 9.1 Magnesium 1.9 Total Bilirubin 1.0 AST 34 ALT 17 Alkaline Phosphatase 214 H Troponin I < 0.012 < 0.012 NT-Pro-B Natriuret Pep 157 H Total Protein 8.0 Albumin 4.7 Lipase 133 Urine Color Urine Appearance Urine pH Ur Specific [place] Urine Protein Urine Glucose (UA) Urine Ketones Ur Blood (Man) Urine Nitrate Urine Bilirubin Urine Urobilinogen Add Ur Microanalysis Leukocyte Esterase Rfl Urine RBC Urine WBC Ur Squamous Epith Cells Urine Bacteria Urine Casts Influenza A (RT-PCR) Negative Influenza B (RT-PCR) Negative RSV (RT-PCR) Negative SARS-CoV-2 RNA (RT-PCR) Negative 09/07/24 09/07/24 09/07/24 18:35 19:10 21:28 WBC RBC Hgb Hct MCV MCH MCHC RDW Plt Count MPV Immature Gran % (Auto) Neut % (Auto) Lymph % (Auto) [place] % (Auto) Eos % (Auto) Baso % (Auto) Lymph # (Auto) [place] # (Auto) Eos # (Auto) Baso # (Auto) Abs Immat Gran (auto) Absolute Neuts (auto) Absolute Nucleated RBC Nucleated RBC % % Immature Plt Fraction PT INR APTT D-Dimer Sodium Potassium Chloride Carbon Dioxide Anion Gap BUN Creatinine Estim Creat Clear Calc Estimated GFR Glucose Lactic Acid 1.3 Calcium Magnesium Total Bilirubin AST ALT Alkaline Phosphatase Troponin I < 0.012 NT-Pro-B Natriuret Pep Total Protein Albumin Lipase Urine Color Yellow Urine Appearance Clear Urine pH 6.0 Ur Specific [place] 1.025 Urine Protein Negative Urine Glucose (UA) Negative Urine Ketones Negative Ur Blood (Man) Negative Urine Nitrate Negative Urine Bilirubin Negative Urine Urobilinogen 0.2 Add Ur Microanalysis Reviewed Leukocyte Esterase Rfl 1+ H Urine RBC 0-2 Urine WBC 0-5 Ur Squamous Epith Cells Occasional Urine Bacteria None seen Urine Casts 0-2 Influenza A (RT-PCR) Influenza B (RT-PCR) RSV (RT-PCR) SARS-CoV-2 RNA (RT-PCR) Quality VTE Prophylaxis VTE prophylaxis: pharmacologic ordered
[2024-09-08] MEDS: ACETAMINOPHEN 325 MG TABLET 650 MG PO ×3 (09:52→21:11)
[2024-09-08] MEDS: ALPRAZolam (*CRX) 0.5 MG TABLET 1 MG PO ×2 (09:53→21:11)
[2024-09-08 09:55] LABS: Hematocrit 35.9 % (37.0-47.0); Hemoglobin 11.9 g/dL (12.0-15.0); Immature Granulocyte Absolute 0.02 K/mm3 (0.00-0.031); Immature Granulocyte Percent A 0.7 % (0-0.5); Immature Platelet Fraction Pct 6.5 % (0.9-11.2); Lymphocytes Absolute Auto 0.63 K/mm3 (0.9-3.2); Lymphocytes Percent Auto 23.4 % (18.3-44.2); Mean Corpuscular HGB Conc 33.1 g/dl (32-36); Mean Corpuscular Hemoglobin 28.7 pg (26-34); Mean Corpuscular Volume 86.5 fl (80-100); Mean Platelet Volume 10.9 fl (7.4-10.4); Monocytes Absolute Auto 0.3 K/mm3 (0.1-0.6); Monocytes Percent Auto 9.3 % (2.6-8.5); Neutrophils Absolute Auto 1.8 K/mm3 (1.3-6.7); Neutrophils Percent Auto 66.6 % (45.5-73.1); Platelet Count Result 142 k/mm3 (150-375); Red Blood Count 4.15 M/mm3 (4.2-5.4); Red Cell Distribution Width 14.2 % (11.5-14.5); White Blood Count 2.7 K/mm3 (4.5-10.0)
[2024-09-08 10:19] LABS: Erythrocyte Sedimentation Rate 42 mm/hr (0-20)
[2024-09-08 10:47] LABS: Procalcitonin 0.1 ng/mL
[2024-09-08 11:05] LABS: Alanine Aminotransferase 15 U/L (6-35); Albumin Level 4.2 g/dL (3.5-5.1); Alkaline Phosphatase 175 U/L (38-126); Anion Gap 9 mmol/L (4-12); Aspartate Amino Transferase 25 U/L (14-36); Bilirubin,Total 0.5 mg/dL (0.2-1.3); Blood Urea Nitrogen 17 mg/dL (7-17); Calcium 8.9 mg/dL (8.4-10.2); Carbon Dioxide 24 mmol/L (22-30); Chloride 106 mmol/L (98-107); Estimated CRCL calculation 56 ml/min; Estimated Glomerular Filt Rate > 60; Glucose 149 mg/dL (65-110); Potassium 3.9 mmol/L (3.4-5.0); Sodium 139 mmol/L (137-145)
[2024-09-08 11:20] LABS: MRSA (PCR) NOT DETECTED (NOT DETECTE)
[2024-09-08] MEDS: AZITHROMYCIN 250 MG TABLET 500 MG PO (11:47)
[2024-09-08 14:59] VITALS: O2SAT 97
[2024-09-08 15:46] VITALS: BP 131/60; PULSE 81; RESP 16; TEMP 36.4; O2SAT 98
[2024-09-08 17:06] LABS: Folic Acid 8.7 ng/mL (2.76->20)
[2024-09-08 20:47] VITALS: BP 153/63; PULSE 83; RESP 16; TEMP 36.5; O2SAT 98
[2024-09-08] MEDS: CYCLOBENZAPRINE HCL 10 MG TABLET PO (21:11)
[2024-09-09] MEDS: ACETAMINOPHEN 325 MG TABLET 650 MG PO ×3 (05:15→20:55)
[2024-09-09 05:22] VITALS: BP 145/59; PULSE 76; RESP 16; TEMP 36.3; O2SAT 98
[2024-09-09 06:55] LABS: Basophils Percent Auto 0.6 % (0.2-1.2); Eosinophils Absolute Auto 0.1 K/mm3 (0-0.3); Eosinophils Percent Auto 1.3 % (0-4.4); Hematocrit 36.1 % (37.0-47.0); Hemoglobin 11.7 g/dL (12.0-15.0); Immature Granulocyte Absolute 0.01 K/mm3 (0.00-0.031); Immature Granulocyte Percent A 0.2 % (0-0.5); Lymphocytes Percent Auto 65.3 % (18.3-44.2); Mean Corpuscular HGB Conc 32.4 g/dl (32-36); Mean Corpuscular Volume 89.6 fl (80-100); Mean Platelet Volume 11.9 fl (7.4-10.4); Monocytes Absolute Auto 0.5 K/mm3 (0.1-0.6); Monocytes Percent Auto 10.1 % (2.6-8.5); Neutrophils Absolute Auto 1.2 K/mm3 (1.3-6.7); Neutrophils Percent Auto 22.5 % (45.5-73.1); Platelet Count Result 132 k/mm3 (150-375); Red Blood Count 4.03 M/mm3 (4.2-5.4); Red Cell Distribution Width 14.3 % (11.5-14.5); White Blood Count 5.4 K/mm3 (4.5-10.0)
[2024-09-09 07:07] LABS: Alanine Aminotransferase 14 U/L (6-35); Albumin Level 3.9 g/dL (3.5-5.1); Alkaline Phosphatase 156 U/L (38-126); Anion Gap 6 mmol/L (4-12); Aspartate Amino Transferase 27 U/L (14-36); Bilirubin,Total 0.2 mg/dL (0.2-1.3); Blood Urea Nitrogen 19 mg/dL (7-17); Calcium 8.4 mg/dL (8.4-10.2); Carbon Dioxide 26 mmol/L (22-30); Chloride 108 mmol/L (98-107); Estimated CRCL calculation 56 ml/min; Estimated Glomerular Filt Rate > 60; Glucose 84 mg/dL (65-110); Potassium 3.8 mmol/L (3.4-5.0); Sodium 140 mmol/L (137-145)
[2024-09-09] MEDS: ENOXAPARIN 40 MG/0.4 ML SYRINGE SUB-Q (08:11)
[2024-09-09] MEDS: AZITHROMYCIN 250 MG TABLET 500 MG PO (08:11)
[2024-09-09] MEDS: FLUoxetine HCL 20 MG CAPSULE PO (08:11)
[2024-09-09] MEDS: PANTOPRAZOLE 40 MG TABLET PO (08:11)
[2024-09-09] MEDS: PREGABALIN (*CRX) 75 MG CAPSULE PO ×2 (08:12→16:45)
[2024-09-09 14:00] VITALS: BP 125/58; PULSE 73; RESP 26; TEMP 36.3; O2SAT 97
--- NOTE | 2024-09-09 15:39 | P.PNIM_ITS ---
Progress Note: A&P Assessment and Plan (1) Pneumonia: Qualifiers: Laterality: left Lung location: upper lobe of lung Pneumonia type: due to unspecified organism Qualified Code(s): J18.9 - Pneumonia, unspecified organism Code(s): J18.9 - Pneumonia, unspecified organism Status: Acute Assessment and Plan: * Chest abdomen pelvis CTA was negative for PE, shown pneumonia in the left upper and superior left lower lobe * Chest x-ray was negative * Blood cultures obtained and are pending * Continue Rocephin and Azithromycin for community-acquired pneumonia * MRSA negative * Will also check urine strep, urine Legionella, mycoplasma * Blood cell count 6.0, she is afebrile * Procalcitonin 0.1 * Continue DuoNebs * improving (2) ILD (interstitial lung disease): Code(s): J84.9 - Interstitial pulmonary disease, unspecified Status: Acute Assessment and Plan: * Noted on CT * See above for details (3) GERD (gastroesophageal reflux disease): Code(s): K21.9 - Gastro-esophageal reflux disease without esophagitis Status: Acute Assessment and Plan: * Continue Protonix (4) Subclavian steal syndrome: Code(s): G45.8 - Other transient cerebral ischemic attacks and related syndromes Status: Acute Assessment and Plan: * CTA of the chest/abdomen/pelvis was negative for PE, shown pneumonia, mild mediastinal lymphadenopathy, total occlusion of the right subclavian artery with reconstitution, consistent with subclavian steal syndrome * May need to see vascular as an outpatient for follow up. 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 * If no improvement, consider hematology consult Subjective Date/time seen: 09/09/24 15:39 Interval history: Interval history: This is a 64-year-old female who presented to the hospital on 09/07/2024 with complaints dizziness, fever of 104, shortness of breath, cough, pain across her upper chest, nausea, vomiting, diarrhea, abdominal pain, headache since last . Chest x-ray was negative. CT of the brain was negative. Chest/abdomen/pelvis CTA was negative for PE, showed airspace opacities involving left upper lobe and superior segment of the left lower lobe, mild mediastinal lymphadenopathy, total occlusion the right subclavian artery with reconstitution consistent with subclavian steal syndrome, total right hip arthroplasty with osteolysis. Initial labs showed a normal white blood cell count of 6.0, platelet count of 133, D-dimer 0.95, INR 1.0, sodium 136, lactic acid was normal at 1.3, alk-phos 214, troponin negative x3, proBNP 157, lipase normal at 133. UA was obtained which showed little +leukocyte, otherwise negati ve. Respiratory panel was negative for influenza a and B, RSV, COVID. Blood and urine cultures were obtained and are currently pending. Patient was started on Rocephin and azithromycin, given a dose of meclizine, DuoNeb, Solu-Medrol, and morphine while in the ED. Subjective: Patient denies any fever, nausea, vomiting, diarrhea, abdominal pain, chest pain, shortness of breath. Patient endorses chills, diaphoresis, shortness of breath with activity. She also reports productive cough with yellow sputum as well. She states that she smokes 1/2 a pack of cigarettes a day for the past 50 years and would like to quit considering the last time she had a cigarette was of last week. Labs and imaging reviewed. pt is seen brad xmained Review of Systems Review of Systems: cough productive of sputum, shortness of breath, lightheadedness, generalized weakness, poor appetite, nausea, vomiting. All systems reviewed & are unremarkable except as noted in HPI and below Constitutional: Constitutional: Reports as per HPI and Reports no additional constitutional complaints Eyes: Eyes: Reports as per HPI and Reports no additional eye complaints ENT: Reports system reviewed and no additional complaints, except as documented and Reports as per HPI Cardiovascular: Cardiovascular: Reports as per HPI and Reports no additional cardiovascular complaints Respiratory: Respiratory: Reports as per HPI and Reports no additional respiratory complaints Gastrointestinal: Gastrointestinal: Reports as per HPI and Reports no additional gastrointestinal complaints Genitourinary: Genitourinary: Reports no additional female genitourinary complaints and Reports as per HPI Musculoskeletal: Musculoskeletal: Reports no additional musculoskeletal complaints and Reports as per HPI Integumentary/Breasts: Skin/Breast: Reports system reviewed and no additional complaints, except as docu and Reports as per HPI Neurologic: Reports system reviewed and no additional complaints, except as documented and Reports as per HPI Psychiatric: Psychiatric: Reports no additional psychiatric complaints and Reports as per HPI Exam Narrative: General: In no acute distress, well nourished Head: atraumatic, no encephalopathy Eyes: PERRLA, sclera clear ENT: moist mucous membranes, nasal passages clear Neck: supple, no JVD, no adenopathy, trachea midline Cardiac: Normal S1 and S2. No murmur, gallops or friction rubs, peripheral pulses intact. Respiratory: Wheezing and Rhonchi in right > left, no other adventitious lung sounds, currently on room air, no respiratory distress or use of accessory muscles. Gastrointestinal: soft, non-distended, non-tender, normoactive bowel sounds. : voiding without difficulty. Extremities: moves all extremities well, no edema, good ROM, strength 5/5 Skin: clean, dry, intact. No wounds or lesions. Neuro: Alert and oriented x4, cranial nerves intact, no neuro deficits. 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 HENMT: Head: normal to inspection, normocephalic and atraumatic Ears: hearing grossly normal bilaterally Face/Nose/Sinus: normal facial exam Face and sinus: normal facial exam Eyes: General: appearance normal, both eyes and all related structures Pupils: Equal, round and reactive pupils present EOM: EOMs intact bilaterally Neck: Neck: full ROM, no lymphadenopathy and no JVD Thyroid: thyroid normal Lymphatic: no lymphadenopathy noted Resp: Effort & Inspection: normal respiratory effort and able to speak in complete sentences Auscultation: crackles on the right and diminished lung sounds Cardio: Jugular venous distension: no JVD Rate: regular rate Rhythm: regular rhythm Heart sounds: S1 normal heart sound present and S2 normal heart sound present : General: Yes deferred Skin: Rashes: no rashes Wounds: no wounds Neuro: General: patient oriented x3, CN's II-XI intact bilaterally and Unable to assess gait Cranial nerves: Yes CN's II-XII intact bilaterally and Yes Equal, round and reactive pupils present Cognition (Neuro): normal cognition Speech: normal speech Gait exam (Neuro): Unable to assess gait Motor exam (neuro): 5/5 motor strength present throughout Extrem: General: normal to inspection, full ROM, no joint enlargement and no pedal edema Objective Data Vital Signs Vital Signs: Vital Signs - 24 hr 09/08/24 15:46 09/08/24 20:47 09/08/24 20:00 Temperature 97.6 F 97.7 F Pulse Rate 81 83 Respiratory Rate 16 16 Blood Pressure 131/60 153/63 H Pulse Oximetry 98 98 Oxygen Delivery Room Air 09/09/24 05:22 09/09/24 08:00 09/09/24 14:00 Temperature 97.3 F L 97.4 F L Pulse Rate 76 73 Respiratory Rate 16 26 H Blood Pressure 145/59 H 125/58 L Pulse Oximetry 98 97 Oxygen Delivery Room Air Intake/Output Intake/Output: Intake & Output 09/06/24 09/07/24 09/08/24 09/09/24 23:59 23:59 23:59 23:59 Intake Total 1300 1000 780 Output Total 1100 500 Balance 1300 -100 280 Meds/Results Medications: Active Medications Generic Name Dose Route Start Last Admin Trade Name Freq PRN Reason Stop Dose Admin Acetaminophen 650 mg 09/08/24 09:26 09/09/24 05:15 Acetaminophen 325 Mg Tablet PO 650 mg Q4H PRN Administration Mild Pain (1-3) or Fever Albuterol 2 puff 09/07/24 23:18 Albuterol Sulfate (*Sp) Aerosol 1 Puff INHALATION PRN PRN Shortness Of Breath Alprazolam 1 mg 09/07/24 23:18 09/08/24 21:11 Alprazolam (*Crx) 0.5 Mg Tablet PO 1 mg TID PRN Administration Anxiety Azithromycin 500 mg 09/08/24 12:00 09/09/24 08:11 Azithromycin 250 Mg Tablet PO 500 mg DAILY DANA Administration Cyclobenzaprine HCl 10 mg 09/08/24 21:00 09/08/24 21:11 Cyclobenzaprine Hcl 10 Mg Tablet PO 10 mg HS DANA Administration Enoxaparin Sodium 40 mg 09/09/24 09:00 09/09/24 08:11 Enoxaparin 40 Mg/0.4 Ml Syringe SUB-Q 40 mg DAILY DANA Administration Fluoxetine HCl 20 mg 09/08/24 09:00 09/09/24 08:11 Fluoxetine Hcl 20 Mg Capsule PO 20 mg DAILY DANA Administration Ceftriaxone Sodium 1 gm in 50 mls @ 100 mls/hr 09/08/24 18:00 09/08/24 18:10 Rocephin 1 Gm/Ns 50 Ml IVPB 100 mls/hr Q24H DANA Administration Ondansetron HCl 4 mg 09/08/24 09:26 Ondansetron Inj 4 Mg/2 Ml Vial IV PUSH Q6H PRN Nausea And Vomiting Pantoprazole Sodium 40 mg 09/08/24 09:00 09/09/24 08:11 Pantoprazole 40 Mg Tablet PO 40 mg QAM DANA Administration Pregabalin 75 mg 09/08/24 09:00 09/09/24 08:12 Pregabalin (*Crx) 75 Mg Capsule PO 75 mg BID DANA Administration Radiology Results: ITS Impressions Chest X-Ray 09/07/24 14:55 IMPRESSION: No acute cardiopulmonary pathology. Elevation of the left hemidiaphragm with possibility of adjacent nodule cannot be excluded. CT evaluation advised. Head CT 09/07/24 14:59 IMPRESSION: No acute intracranial findings. Chest/Abdomen/Pelvis CTA 09/07/24 17:44 IMPRESSION: 1. No pulmonary embolus. 2. Airspace opacities involving left upper lobe and superior segment left lower lobe with slight worsening from 02/26/2024, likely a combination of pneumonia and scarring. 3. Mild mediastinal lymphadenopathy, likely reactive. 4. 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 5. 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 Labs Labs: Laboratory Results - last 24 hr 09/08/24 09/09/24 09:43 06:14 WBC 5.4 RBC 4.03 L Hgb 11.7 L Hct 36.1 L MCV 89.6 MCH 29.0 MCHC 32.4 RDW 14.3 Plt Count 132 L MPV 11.9 H Immature Gran % (Auto) 0.2 Neut % (Auto) 22.5 L Lymph % (Auto) 65.3 H [place] % (Auto) 10.1 H Eos % (Auto) 1.3 Baso % (Auto) 0.6 Lymph # (Auto) 3.50 H [place] # (Auto) 0.5 Eos # (Auto) 0.1 Baso # (Auto) 0.0 Abs Immat Gran (auto) 0.01 Absolute Neuts (auto) 1.2 L Absolute Nucleated RBC 0.000 Nucleated RBC % 0.0 % Immature Plt Fraction 8.0 Sodium 140 Potassium 3.8 Chloride 108 H Carbon Dioxide 26 Anion Gap 6 BUN 19 H Creatinine 0.70 Estim Creat Clear Calc 56 Estimated GFR > 60 Glucose 84 Calcium 8.4 Total Bilirubin 0.2 AST 27 ALT 14 Alkaline Phosphatase 156 H Total Protein 7.0 Albumin 3.9 Vitamin B12 280.0 Folate 8.7 Quality VTE Prophylaxis VTE prophylaxis: pharmacologic ordered
[2024-09-09] MEDS: ALPRAZolam (*CRX) 0.5 MG TABLET 1 MG PO (16:46)
[2024-09-09 19:46] VITALS: BP 103/58; PULSE 72; RESP 18; TEMP 36.6; O2SAT 98
[2024-09-09] MEDS: CYCLOBENZAPRINE HCL 10 MG TABLET PO (20:55)
[2024-09-09 22:31] VITALS: BP 106/67; PULSE 75; RESP 16; TEMP 36.6; O2SAT 98
[2024-09-10] MEDS: ALPRAZolam (*CRX) 0.5 MG TABLET 1 MG PO ×4 (00:44→20:45)
[2024-09-10] MEDS: ACETAMINOPHEN 325 MG TABLET 650 MG PO ×3 (03:50→18:11)
[2024-09-10 08:00] VITALS: BP 97/68; PULSE 70; RESP 16; TEMP 36.4; O2SAT 98
[2024-09-10 08:12] LABS: Basophils Percent Auto 0.7 % (0.2-1.2); Eosinophils Absolute Auto 0.1 K/mm3 (0-0.3); Eosinophils Percent Auto 2.3 % (0-4.4); Hematocrit 34.5 % (37.0-47.0); Hemoglobin 11.3 g/dL (12.0-15.0); Immature Granulocyte Absolute 0.03 K/mm3 (0.00-0.031); Immature Granulocyte Percent A 0.7 % (0-0.5); Immature Platelet Fraction Pct 7.3 % (0.9-11.2); Lymphocytes Absolute Auto 2.37 K/mm3 (0.9-3.2); Lymphocytes Percent Auto 55.1 % (18.3-44.2); Mean Corpuscular HGB Conc 32.8 g/dl (32-36); Mean Corpuscular Hemoglobin 28.9 pg (26-34); Mean Corpuscular Volume 88.2 fl (80-100); Mean Platelet Volume 11.3 fl (7.4-10.4); Monocytes Absolute Auto 0.4 K/mm3 (0.1-0.6); Monocytes Percent Auto 9.8 % (2.6-8.5); Neutrophils Absolute Auto 1.4 K/mm3 (1.3-6.7); Neutrophils Percent Auto 31.4 % (45.5-73.1); Platelet Count Result 130 k/mm3 (150-375); Red Blood Count 3.91 M/mm3 (4.2-5.4); Red Cell Distribution Width 14.4 % (11.5-14.5); White Blood Count 4.3 K/mm3 (4.5-10.0)
[2024-09-10 08:18] LABS: Alanine Aminotransferase 12 U/L (6-35); Albumin Level 3.6 g/dL (3.5-5.1); Alkaline Phosphatase 146 U/L (38-126); Anion Gap 5 mmol/L (4-12); Aspartate Amino Transferase 23 U/L (14-36); Bilirubin,Total 0.3 mg/dL (0.2-1.3); Blood Urea Nitrogen 16 mg/dL (7-17); Calcium 8.1 mg/dL (8.4-10.2); Carbon Dioxide 26 mmol/L (22-30); Chloride 108 mmol/L (98-107); Estimated CRCL calculation 44 ml/min; Estimated Glomerular Filt Rate > 60; Glucose 92 mg/dL (65-110); Sodium 139 mmol/L (137-145)
[2024-09-10] MEDS: FLUoxetine HCL 20 MG CAPSULE PO (08:44)
[2024-09-10] MEDS: PREGABALIN (*CRX) 75 MG CAPSULE PO ×2 (08:44→18:09)
[2024-09-10] MEDS: AZITHROMYCIN 250 MG TABLET 500 MG PO (08:44)
[2024-09-10] MEDS: PANTOPRAZOLE 40 MG TABLET PO (08:44)
--- NOTE | 2024-09-10 13:26 | P.DS_ITS ---
DS: Discharge Diagnosis Discharge Diagnosis (1) Pneumonia: Qualifiers: Laterality: left Lung location: upper lobe of lung Pneumonia type: due to unspecified organism Qualified Code(s): J18.9 - Pneumonia, unspecified organism Code(s): J18.9 - Pneumonia, unspecified organism Status: Acute Assessment and Plan: * Chest abdomen pelvis CTA was negative for PE, shown pneumonia in the left upper and superior left lower lobe * Chest x-ray was negative * Blood cultures obtained and are pending * Continue Rocephin and Azithromycin for community-acquired pneumonia * MRSA negative * Will also check urine strep, urine Legionella, mycoplasma * Blood cell count 6.0, she is afebrile * Procalcitonin 0.1 * Continue DuoNebs * improving (2) ILD (interstitial lung disease): Code(s): J84.9 - Interstitial pulmonary disease, unspecified Status: Acute Assessment and Plan: * Noted on CT * See above for details (3) GERD (gastroesophageal reflux disease): Code(s): K21.9 - Gastro-esophageal reflux disease without esophagitis Status: Acute Assessment and Plan: * Continue Protonix (4) Subclavian steal syndrome: Code(s): G45.8 - Other transient cerebral ischemic attacks and related syndromes Status: Acute Assessment and Plan: * CTA of the chest/abdomen/pelvis was negative for PE, shown pneumonia, mild mediastinal lymphadenopathy, total occlusion of the right subclavian artery with reconstitution, consistent with subclavian steal syndrome * May need to see vascular as an outpatient for follow up. 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 * If no improvement, consider hematology consult DS: Summary Time Spent with Patient Time attestation: Total time spent providing and/or coordinating discharge services: Exam Narrative: General: In no acute distress, well nourished Head: atraumatic, no encephalopathy Eyes: PERRLA, sclera clear ENT: moist mucous membranes, nasal passages clear Neck: supple, no JVD, no adenopathy, trachea midline Cardiac: Normal S1 and S2. No murmur, gallops or friction rubs, peripheral pulses intact. Respiratory: Wheezing and Rhonchi in right > left, no other adventitious lung sounds, currently on room air, no respiratory distress or use of accessory muscles. Gastrointestinal: soft, non-distended, non-tender, normoactive bowel sounds. : voiding without difficulty. Extremities: moves all extremities well, no edema, good ROM, strength 5/5 Skin: clean, dry, intact. No wounds or lesions. Neuro: Alert and oriented x4, cranial nerves intact, no neuro deficits. 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 HENMT: Head: normal to inspection, normocephalic and atraumatic Ears: hearing grossly normal bilaterally Face/Nose/Sinus: normal facial exam Face and sinus: normal facial exam Eyes: General: appearance normal, both eyes and all related structures Pupils: Equal, round and reactive pupils present EOM: EOMs intact bilaterally Neck: Neck: full ROM, no lymphadenopathy and no JVD Thyroid: thyroid normal Lymphatic: no lymphadenopathy noted Resp: Effort & Inspection: normal respiratory effort and able to speak in complete sentences Auscultation: crackles on the right and diminished lung sounds Cardio: Jugular venous distension: no JVD Rate: regular rate Rhythm: regular rhythm Heart sounds: S1 normal heart sound present and S2 normal heart sound present : General: Yes deferred Skin: Rashes: no rashes Wounds: no wounds Neuro: General: patient oriented x3, CN's II-XI intact bilaterally and Unable to assess gait Cranial nerves: Yes CN's II-XII intact bilaterally and Yes Equal, round and reactive pupils present Cognition (Neuro): normal cognition Speech: normal speech Gait exam (Neuro): Unable to assess gait Motor exam (neuro): 5/5 motor strength present throughout Extrem: General: normal to inspection, full ROM, no joint enlargement and no pedal edema DS: Data Data Completed and Pending Labs on day of discharge: Labs from last 24 hours 09/10/24 07:54 WBC 4.3 L RBC 3.91 L Hgb 11.3 L Hct 34.5 L MCV 88.2 MCH 28.9 MCHC 32.8 RDW 14.4 Plt Count 130 L MPV 11.3 H Immature Gran % (Auto) 0.7 H Neut % (Auto) 31.4 L Lymph % (Auto) 55.1 H [place] % (Auto) 9.8 H Eos % (Auto) 2.3 Baso % (Auto) 0.7 Lymph # (Auto) 2.37 [place] # (Auto) 0.4 Eos # (Auto) 0.1 Baso # (Auto) 0.0 Abs Immat Gran (auto) 0.03 Absolute Neuts (auto) 1.4 Absolute Nucleated RBC 0.000 Nucleated RBC % 0.0 % Immature Plt Fraction 7.3 Sodium 139 Potassium 4.0 Chloride 108 H Carbon Dioxide 26 Anion Gap 5 BUN 16 Creatinine 0.90 Estim Creat Clear Calc 44 Estimated GFR > 60 Glucose 92 Calcium 8.1 L Total Bilirubin 0.3 AST 23 ALT 12 Alkaline Phosphatase 146 H Total Protein 7.0 Albumin 3.6 Preliminary micro results at discharge 09/07/24 19:10 Blood Culture - Preliminary Blood 09/07/24 19:10 Blood Culture - Preliminary Blood Discharge Plan Discharge Discharge Medications: No Action albuterol sulfate 90 mcg/actuation HFA aerosol inhaler 2 inh INHALATION PRN PRN (Reason: Shortness Of Breath) fluoxetine 20 mg capsule 20 mg PO DAILY pregabalin 75 mg capsule 75 mg PO BID cyclobenzaprine 10 mg tablet 10 mg PO HS alprazolam 1 mg tablet 1 mg PO TID PRN (Reason: Anxiety) omeprazole 20 mg capsule,delayed release(DR/EC) 20 mg PO DAILY Date of admission: 09/07/24 18:28 Primary Care Provider: Justin Anne Admitting Provider: Sharon Lovett Attending physician on admission: Demetra Payan Condition: Stable Quality VTE Prophylaxis VTE prophylaxis: pharmacologic ordered
--- NOTE | 2024-09-10 13:33 | P.PNIM_ITS ---
Progress Note: A&P Assessment and Plan (1) Pneumonia: Qualifiers: Laterality: left Lung location: upper lobe of lung Pneumonia type: due to unspecified organism Qualified Code(s): J18.9 - Pneumonia, unspecified organism Code(s): J18.9 - Pneumonia, unspecified organism Status: Acute Assessment and Plan: * Chest abdomen pelvis CTA was negative for PE, shown pneumonia in the left upper and superior left lower lobe * Chest x-ray was negative * Blood cultures obtained and are pending * Continue Rocephin and Azithromycin for community-acquired pneumonia * MRSA negative * Will also check urine strep, urine Legionella, mycoplasma * Blood cell count 6.0, she is afebrile * Procalcitonin 0.1 * Continue DuoNebs * downgrade antibiotics to PO- Zithromax, augmentin (2) ILD (interstitial lung disease): Code(s): J84.9 - Interstitial pulmonary disease, unspecified Status: Acute Assessment and Plan: * Noted on CT * See above for details (3) GERD (gastroesophageal reflux disease): Code(s): K21.9 - Gastro-esophageal reflux disease without esophagitis Status: Acute Assessment and Plan: protonix (4) Subclavian steal syndrome: Code(s): G45.8 - Other transient cerebral ischemic attacks and related syndromes Status: Acute Assessment and Plan: * CTA of the chest/abdomen/pelvis was negative for PE, shown pneumonia, mild mediastinal lymphadenopathy, total occlusion of the right subclavian artery with reconstitution, consistent with subclavian steal syndrome * May need to see vascular as an outpatient for follow up. (5) Trochanteric bursitis of left hip: Code(s): M70.62 - Trochanteric bursitis, left hip Status: Acute Assessment and Plan: * CTA of the chest/abdomen/pelvis showed total right hip arthroplasty with osteolysis adjacent to the AC tabulated cup consistent with particle disease versus infection * Continue pain control * ESR 42, CRP 3.0, WBC normal on admission, procalcitonin 0.1, pancytopenia on 2nd set of labs * Ortho consulted for bursitis/septic arthritis-consult ordered (6) Pancytopenia: Code(s): D61.818 - Other pancytopenia Status: Acute Assessment and Plan: * WBC 2.7, RBC 4.15, Plt 142 * Will check Vitamin B12 and folate * Continue to trend. * If no improvement, consider hematology consult Time Spent With Patient Time with patient: Greater than 35 minutes Subjective Date/time seen: 09/10/24 13:33 Interval history: Interval history: This is a 64-year-old female who presented to the hospital on 09/07/2024 with complaints dizziness, fever of 104, shortness of breath, cough, pain across her upper chest, nausea, vomiting, diarrhea, abdominal pain, headache since last . Chest x-ray was negative. CT of the brain was negative. Chest/ab domen/pelvis CTA was negative for PE, showed airspace opacities involving left upper lobe and superior segment of the left lower lobe, mild mediastinal lymphadenopathy, total occlusion the right subclavian artery with reconstitution consistent with subclavian steal syndrome, total right hip arthroplasty with osteolysis. Initial labs showed a normal white blood cell count of 6.0, platelet count of 133, D-dimer 0.95, INR 1.0, sodium 136, lactic acid was normal at 1.3, alk-phos 214, troponin negative x3, proBNP 157, lipase normal at 133. UA was obtained which showed little +leukocyte, otherwise negative. Respiratory panel was negative for influenza a and B, RSV, COVID. Blood and urine cultures were obtained and are currently pending. Patient was started on Rocephin and azithromycin, given a dose of meclizine, DuoNeb, Solu-Medrol, and morphine while in the ED. Subjective: Patient denies any fever, nausea, vomiting, diarrhea, abdominal pain, chest pain, shortness of breath. Patient endorses chills, diaphoresis, shortness of breath with activity. She also reports productive cough with yellow sputum as well. She states that she smokes 1/2 a pack of cigarettes a day for the past 50 years and would like to quit considering the last time she had a cigarette was of last week. Labs and imaging reviewed. 09/10- pt is seen and examined. she reports no acute issues- dizzy with position change. appetite is fair 09/11- will order PT/OT- downgrade antibiotics to PO- ortho consulted. Review of Systems Review of Systems: cough productive of sputum, shortness of breath, lightheadedness, generalized weakness, poor appetite, nausea, vomiting. All systems reviewed & are unremarkable except as noted in HPI and below Constitutional: Constitutional: Reports as per HPI and Reports no additional constitutional complaints Eyes: Eyes: Reports as per HPI and Reports no additional eye complaints ENT: Reports system reviewed and no additional complaints, except as documented and Reports as per HPI Cardiovascular: Cardiovascular: Reports as per HPI and Reports no additional cardiovascular complaints Respiratory: Respiratory: Reports as per HPI and Reports no additional respiratory complaints Gastrointestinal: Gastrointestinal: Reports as per HPI and Reports no additional gastrointestinal complaints Genitourinary: Genitourinary: Reports no additional female genitourinary complaints and Reports as per HPI Musculoskeletal: Musculoskeletal: Reports no additional musculoskeletal complaints and Reports as per HPI Integumentary/Breasts: Skin/Breast: Reports system reviewed and no additional complaints, except as docu and Reports as per HPI Neurologic: Reports system reviewed and no additional complaints, except as documented and Reports as per HPI Psychiatric: Psychiatric: Reports no additional psychiatric complaints and Reports as per HPI Objective Data Vital Signs Vital Signs: Vital Signs - 24 hr 09/09/24 14:00 09/09/24 19:46 09/09/24 22:31 Temperature 97.4 F L 97.8 F 97.8 F Pulse Rate 73 72 75 Respiratory Rate 26 H 18 16 Blood Pressure 125/58 L 103/58 L 106/67 Pulse Oximetry 97 98 98 Oxygen Delivery 09/10/24 08:00 09/10/24 08:00 Temperature 97.6 F Pulse Rate 70 Respiratory Rate 16 Blood Pressure 97/68 L Pulse Oximetry 98 Oxygen Delivery Room Air Intake/Output Intake/Output: Intake & Output 09/07/24 09/08/24 09/09/24 09/10/24 23:59 23:59 23:59 23:59 Intake Total 1300 1050 1470 970 Output Total 1100 500 Balance 1300 -50 970 970 Meds/Results Medications: Active Medications Generic Name Dose Route Start Last Admin Trade Name Freq PRN Reason Stop Dose Admin Acetaminophen 650 mg 09/08/24 09:26 09/10/24 08:45 Acetaminophen 325 Mg Tablet PO 650 mg Q4H PRN Administration Mild Pain (1-3) or Fever Albuterol 2 puff 09/07/24 23:18 Albuterol Sulfate (*Sp) Aerosol 1 Puff INHALATION PRN PRN Shortness Of Breath Alprazolam 1 mg 09/07/24 23:18 09/10/24 08:45 Alprazolam (*Crx) 0.5 Mg Tablet PO 1 mg TID PRN Administration Anxiety Amoxicillin/Clavulanate Potassium 1 tablet 09/10/24 17:00 Amoxicillin/Clavulanate K 875-125 Mg Tab PO 09/12/24 09:01 BID DANA Azithromycin 500 mg 09/08/24 12:00 09/10/24 08:44 Azithromycin 250 Mg Tablet PO 09/11/24 09:01 500 mg DAILY DANA Administration Cyclobenzaprine HCl 10 mg 09/08/24 21:00 09/09/24 20:55 Cyclobenzaprine Hcl 10 Mg Tablet PO 10 mg HS DANA Administration Enoxaparin Sodium 40 mg 09/09/24 09:00 09/09/24 08:11 Enoxaparin 40 Mg/0.4 Ml Syringe SUB-Q 40 mg DAILY DANA Administration Fluoxetine HCl 20 mg 09/08/24 09:00 09/10/24 08:44 Fluoxetine Hcl 20 Mg Capsule PO 20 mg DAILY DANA Administration Ondansetron HCl 4 mg 09/08/24 09:26 Ondansetron Inj 4 Mg/2 Ml Vial IV PUSH Q6H PRN Nausea And Vomiting Pantoprazole Sodium 40 mg 09/08/24 09:00 09/10/24 08:44 Pantoprazole 40 Mg Tablet PO 40 mg QAM DANA Administration Pregabalin 75 mg 09/08/24 09:00 09/10/24 08:44 Pregabalin (*Crx) 75 Mg Capsule PO 75 mg BID DANA Administration Radiology Results: ITS Impressions Chest X-Ray 09/07/24 14:55 IMPRESSION: No acute cardiopulmonary pathology. Elevation of the left hemidiaphragm with possibility of adjacent nodule cannot be excluded. CT evaluation advised. Head CT 09/07/24 14:59 IMPRESSION: No acute intracranial findings. Chest/Abdomen/Pelvis CTA 09/07/24 17:44 IMPRESSION: 1. No pulmonary embolus. 2. Airspace opacities involving left upper lobe and superior segment left lower lobe with slight worsening from 02/26/2024, likely a combination of pneumonia and scarring. 3. Mild mediastinal lymphadenopathy, likely reactive. 4. 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 5. 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 Labs Labs: Laboratory Results - last 24 hr 09/10/24 07:54 WBC 4.3 L RBC 3.91 L Hgb 11.3 L Hct 34.5 L MCV 88.2 MCH 28.9 MCHC 32.8 RDW 14.4 Plt Count 130 L MPV 11.3 H Immature Gran % (Auto) 0.7 H Neut % (Auto) 31.4 L Lymph % (Auto) 55.1 H [place] % (Auto) 9.8 H Eos % (Auto) 2.3 Baso % (Auto) 0.7 Lymph # (Auto) 2.37 [place] # (Auto) 0.4 Eos # (Auto) 0.1 Baso # (Auto) 0.0 Abs Immat Gran (auto) 0.03 Absolute Neuts (auto) 1.4 Absolute Nucleated RBC 0.000 Nucleated RBC % 0.0 % Immature Plt Fraction 7.3 Sodium 139 Potassium 4.0 Chloride 108 H Carbon Dioxide 26 Anion Gap 5 BUN 16 Creatinine 0.90 Estim Creat Clear Calc 44 Estimated GFR > 60 Glucose 92 Calcium 8.1 L Total Bilirubin 0.3 AST 23 ALT 12 Alkaline Phosphatase 146 H Total Protein 7.0 Albumin 3.6 Quality VTE Prophylaxis VTE prophylaxis: pharmacologic ordered
[2024-09-10 14:00] VITALS: BP 136/55; PULSE 72; RESP 16; TEMP 36.3; O2SAT 99
--- NOTE | 2024-09-10 17:06 | PM.CNOR ---
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 She complained of dizziness shortness of breath chest pain nausea vomiting diarrhea and lower abdominal pain and headache. When she came into the ER on the she reported a 100 for fever. She is being evaluated for possible pneumonia. She received azithromycin and ceftriaxone initially and is currently taking Augmentin. Part of her evaluation included a CT angiogram of the abdomen pelvis chest which showed substantial osteolysis around the right hip replacement with substantial trochanteric bone loss and osteolytic defects around the acetabulum. She has been having more pain in her hip replacement past 1 year and she feels like it is almost going to dislocate. She feels like it moves around. She had her 1st hip replacement in the . She was born with arthrogryposis. Her 1st hip replacement was done in [place] and was complicated by having a mass over the lateral aspect of her hip which she described and then approximately 12 years ago she had the surgery on that hip with Dr. Hobbs who removed the mass. I am going to try to obtain copies of the operative note from that procedure so I can understand was found. Physical examination On exam she has limited flexion of the right hip to about 70?. She does have some pain with this but seems to be mild. She has no sense of instability with internal external rotation or discomfort with this. She does have rather severe tenderness over the lateral aspect of the hip over the trochanteric region. There is no mass or swelling. No redness or warmth. She has diminished calf ankle foot size by the laterally. She has had the tips of her toes amputated recurring toe ulcer problems because of the Arthrogryposis she had no lower extremity edema. She had palpable pulses in her foot and denied numbness or tingling light touch testing of the right lower extremity. Her laboratory studies on admission showed a C-reactive protein of 3.0 normal was less than 1 and a sedimentation rate of 42 normal less than 20. She has low white count of 4.3 hemoglobin 11.3 platelets diminished at 1:30 a.m. so she does have a pancytopenia. I am being asked to evaluate her for possible infection in and around her hip replacement. I am going to order x-rays of the right hip. I reviewed the x-rays from November of this year when she last saw Dr. Hobbs and at that time she had extensive. 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 I am going to ask the radiologist to aspirate the right hip under image guidance cell count with differential aerobic and anaerobic cultures Gram stain. Unfortunately if she does have an infection we may not be able to grow anything because she is on antibiotics currently however if she does have a large joint effusion with high white count with differential is suspicious in the joint fluid that is it this can be repeated after she is off antibiotics for 3 or 4 weeks. 45 minutes were spent in total care this patient today reviewing records speaking to the patient and in documentation and test ordering. 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 History of surgery on arm Right partial ulna removal 08/17/10 Family History Family History Mother Patient's mother is in good health Father Family history of chronic obstructive pulmonary disease Family history of coronary artery disease Other Family history of tuberculosis No family history of diabetes mellitus Social History Social History Smoking packs per day: 0.5 Smoking cigarettes per day: 10.0 Years smoked: 48 Smoking pack-years: 24.00 Smoking status: Current every day smoker Additional smoking assessment comments: pt states she has not smoked since 09/03/24 and does not intend to restart Alcohol intake: current Alcohol use details: Socail drinker Substance use: current Substance use type: marijuana Other substance usage details: SMOKES OCC. Do You Feel Safe in your Home?: Yes Lack of Transportation: No Lack of Food: Often True Current Housing: I Have Housing Concerned About Future Housing: No Difficulty Paying Gas/Electric Bills: No Difficulty Paying for Meds: No Currently Unemployed: No Education: Grade School Difficulty w/ Childcare or Family Care: No Living arrangements: with family Spiritual care concerns: No Meds Home Medications and Allergies Home Medications Medication Instructions Recorded Confirmed Type alprazolam 1 mg tablet 1 mg PO TID PRN Anxiety 02/09/22 09/07/24 History cyclobenzaprine 10 mg tablet 10 mg PO HS 02/09/22 09/07/24 History omeprazole 20 mg capsule,delayed 20 mg PO DAILY 02/09/22 09/07/24 History release albuterol sulfate 90 mcg/actuation 2 inh inhalation PRN PRN Shortness 04/16/22 09/07/24 History aerosol inhaler Of Breath fluoxetine 20 mg capsule 20 mg PO DAILY 09/07/24 09/07/24 History pregabalin 75 mg capsule 75 mg PO BID 09/07/24 09/07/24 History Allergies Allergy/AdvReac Type Severity Reaction Status Date / Time hydrocodone Allergy Itching Verified 09/07/24 19:56 Vital Signs Vital Signs - 24 hr 09/09/24 19:46 09/09/24 22:31 09/10/24 08:00 Temperature 36.6 C 36.6 C 36.4 C Pulse Rate 72 75 70 Respiratory Rate 18 16 16 Blood Pressure 103/58 L 106/67 97/68 L Pulse Oximetry 98 98 98 Oxygen Delivery 09/10/24 08:00 09/10/24 14:00 Temperature 36.3 C L Pulse Rate 72 Respiratory Rate 16 Blood Pressure 136/55 L Pulse Oximetry 99 Oxygen Delivery Room Air Results Labs 09/10/24 07:54 09/10/24 07:54 Labs: Abnormal lab results 09/10/24 Range/Units 07:54 WBC 4.3 L (4.5-10.0) K/mm3 RBC 3.91 L (4.2-5.4) M/mm3 Hgb 11.3 L (12.0-15.0) g/dL Hct 34.5 L (37.0-47.0) % Plt Count 130 L (150-375) k/mm3 MPV 11.3 H (7.4-10.4) fl Immature Gran % (Auto) 0.7 H (0-0.5) % Neut % (Auto) 31.4 L (45.5-73.1) % Lymph % (Auto) 55.1 H (18.3-44.2) % [place] % (Auto) 9.8 H (2.6-8.5) % Chloride 108 H (98-107) mmol/L Calcium 8.1 L (8.4-10.2) mg/dL Alkaline Phosphatase 146 H (38-126) U/L H & H 09/07/24 09/08/24 09/09/24 Range/Units 14:24 09:48 06:14 Hgb 13.2 11.9 L 11.7 L (12.0-15.0) g/dL Hct 40.2 35.9 L 36.1 L (37.0-47.0) % 09/10/24 Range/Units 07:54 Hgb 11.3 L (12.0-15.0) g/dL Hct 34.5 L (37.0-47.0) % Coagulation 09/07/24 Range/Units 14:24 INR 1.0 All other labs normal.
[2024-09-10 17:53] LABS: Pneumococcal Antigen Urine NOT DETECTED
[2024-09-10] MEDS: AMOXICILLIN/CLAVULANATE K 875-125 MG TAB 1 TABLET PO (18:09)
[2024-09-10 20:00] VITALS: BP 101/61; PULSE 70; RESP 16; TEMP 36.4; O2SAT 97
[2024-09-10] MEDS: traMADol HCL (*CRX) 25 MG TABLET PO (23:58)
[2024-09-11] MEDS: ALPRAZolam (*CRX) 0.5 MG TABLET 1 MG PO ×2 (03:46→08:16)
[2024-09-11 05:36] VITALS: BP 113/65; PULSE 75; RESP 16; TEMP 36.2; O2SAT 98
[2024-09-11] MEDS: traMADol HCL (*CRX) 25 MG TABLET PO ×2 (06:33→20:55)
[2024-09-11 06:37] LABS: Basophils Percent Auto 0.3 % (0.2-1.2); Eosinophils Absolute Auto 0.1 K/mm3 (0-0.3); Eosinophils Percent Auto 1.9 % (0-4.4); Hematocrit 32.9 % (37.0-47.0); Hemoglobin 10.9 g/dL (12.0-15.0); Immature Granulocyte Absolute 0.02 K/mm3 (0.00-0.031); Immature Granulocyte Percent A 0.3 % (0-0.5); Immature Platelet Fraction Pct 7.8 % (0.9-11.2); Lymphocytes Absolute Auto 2.68 K/mm3 (0.9-3.2); Lymphocytes Percent Auto 46.6 % (18.3-44.2); Mean Corpuscular HGB Conc 33.1 g/dl (32-36); Mean Corpuscular Volume 87.5 fl (80-100); Monocytes Absolute Auto 0.5 K/mm3 (0.1-0.6); Monocytes Percent Auto 8.7 % (2.6-8.5); Neutrophils Absolute Auto 2.4 K/mm3 (1.3-6.7); Neutrophils Percent Auto 42.2 % (45.5-73.1); Platelet Count Result 134 k/mm3 (150-375); Red Blood Count 3.76 M/mm3 (4.2-5.4); White Blood Count 5.8 K/mm3 (4.5-10.0)
[2024-09-11 06:51] LABS: Alanine Aminotransferase 12 U/L (6-35); Albumin Level 3.7 g/dL (3.5-5.1); Alkaline Phosphatase 143 U/L (38-126); Anion Gap 5 mmol/L (4-12); Aspartate Amino Transferase 21 U/L (14-36); Bilirubin,Total 0.4 mg/dL (0.2-1.3); Blood Urea Nitrogen 18 mg/dL (7-17); Calcium 8.6 mg/dL (8.4-10.2); Carbon Dioxide 27 mmol/L (22-30); Chloride 106 mmol/L (98-107); Estimated CRCL calculation 50 ml/min; Estimated Glomerular Filt Rate > 60; Glucose 96 mg/dL (65-110); Potassium 3.8 mmol/L (3.4-5.0); Sodium 138 mmol/L (137-145)
[2024-09-11] MEDS: PREGABALIN (*CRX) 75 MG CAPSULE PO (08:12)
[2024-09-11] MEDS: FLUoxetine HCL 20 MG CAPSULE PO (08:12)
[2024-09-11] MEDS: AMOXICILLIN/CLAVULANATE K 875-125 MG TAB 1 TABLET PO ×2 (08:12→17:00)
[2024-09-11] MEDS: PANTOPRAZOLE 40 MG TABLET PO (08:12)
[2024-09-11] MEDS: AZITHROMYCIN 250 MG TABLET 500 MG PO (08:13)
[2024-09-11] MEDS: ACETAMINOPHEN 325 MG TABLET 650 MG PO (08:16)
--- NOTE | 2024-09-11 08:57 | P.PNIM_ITS ---
Progress Note: A&P Assessment and Plan (1) Pneumonia: Qualifiers: Laterality: left Lung location: upper lobe of lung Pneumonia type: due to unspecified organism Qualified Code(s): J18.9 - Pneumonia, unspecified organism Code(s): J18.9 - Pneumonia, unspecified organism Status: Acute Assessment and Plan: * Chest abdomen pelvis CTA was negative for PE, shown pneumonia in the left upper and superior left lower lobe * Chest x-ray was negative * Blood cultures obtained and are pending * Continue Rocephin and Azithromycin for community-acquired pneumonia * MRSA negative * Will also check urine strep, urine Legionella, mycoplasma * Blood cell count 6.0, she is afebrile * Procalcitonin 0.1 * Continue DuoNebs * downgrade antibiotics to PO- Zithromax, augmentin (2) ILD (interstitial lung disease): Code(s): J84.9 - Interstitial pulmonary disease, unspecified Status: Acute Assessment and Plan: * Noted on CT * See above for details (3) GERD (gastroesophageal reflux disease): Code(s): K21.9 - Gastro-esophageal reflux disease without esophagitis Status: Acute Assessment and Plan: protonix (4) Subclavian steal syndrome: Code(s): G45.8 - Other transient cerebral ischemic attacks and related syndromes Status: Acute Assessment and Plan: * CTA of the chest/abdomen/pelvis was negative for PE, shown pneumonia, mild mediastinal lymphadenopathy, total occlusion of the right subclavian artery with reconstitution, consistent with subclavian steal syndrome * May need to see vascular as an outpatient for follow up. (5) Trochanteric bursitis of left hip: Code(s): M70.62 - Trochanteric bursitis, left hip Status: Acute Assessment and Plan: * CTA of the chest/abdomen/pelvis showed total right hip arthroplasty with osteolysis adjacent to the AC tabulated cup consistent with particle disease versus infection * Continue pain control * ESR 42, CRP 3.0, WBC normal on admission, procalcitonin 0.1, pancytopenia on 2nd set of labs * Ortho consulted for bursitis/septic arthritis-consult ordered * xray today, joint aspiration * see dr Reeves note: * I am going to ask the radiologist to aspirate the right hip under image guidance cell count with differential aerobic and anaerobic cultures Gram stain. Unfortunately if she does have an infection we may not be able to grow anything because she is on antibiotics currently however if she does have a large joint effusion with high white count with differential is suspicious in the joint fluid that is it this can be repeated after she is off antibiotics for 3 or 4 weeks * aspiration R GH joint * very likely home tomorrow and f/u with ortho as outpt (6) Pancytopenia: Code(s): D61.818 - Other pancytopenia Status: Acute Assessment and Plan: * WBC 2.7, RBC 4.15, Plt 142 * Will check Vitamin B12 and folate * Continue to trend. * If no improvement, consider hematology consult Time Spent With Patient Time with patient: Greater than 35 minutes Subjective Date/time seen: 09/11/24 08:57 Interval history: Interval history: This is a 64-year-old female who presented to the hospital on 09/07/2024 with complaints dizziness, fever of 104, shortness of breath, cough, pain across her upper chest, nausea, vomiting, diarrhea, abdominal pain, headache since last . Chest x-ray was negative. CT of the brain was negative. Ch est/abdomen/pelvis CTA was negative for PE, showed airspace opacities involving left upper lobe and superior segment of the left lower lobe, mild mediastinal lymphadenopathy, total occlusion the right subclavian artery with reconstitution consistent with subclavian steal syndrome, total right hip arthroplasty with osteolysis. Initial labs showed a normal white blood cell count of 6.0, platelet count of 133, D-dimer 0.95, INR 1.0, sodium 136, lactic acid was normal at 1.3, alk-phos 214, troponin negative x3, proBNP 157, lipase normal at 133. UA was obtained which showed little +leukocyte, otherwise negative. Respiratory panel was negative for influenza a and B, RSV, COVID. Blood and urine cultures were obtained and are currently pending. Patient was started on Rocephin and azithromycin, given a dose of meclizine, DuoNeb, Solu-Medrol, and morphine while in the ED. Subjective: Patient denies any fever, nausea, vomiting, diarrhea, abdominal pain, chest pain, shortness of breath. Patient endorses chills, diaphoresis, shortness of breath with activity. She also reports productive cough with yellow sputum as well. She states that she smokes 1/2 a pack of cigarettes a day for the past 50 years and would like to quit considering the last time she had a cigarette was of last week. Labs and imaging reviewed. 09/10- pt is seen and examined. she reports no acute issues- dizzy with position change. appetite is fair 09/11- will order PT/OT- downgrade antibiotics to PO- ortho consulted. Xray is ordered, possible aspiration rt hip. Review of Systems Review of Systems: cough productive of sputum, shortness of breath, lightheadedness, generalized weakness, poor appetite, nausea, vomiting. All systems reviewed & are unremarkable except as noted in HPI and below Constitutional: Constitutional: Reports as per HPI and Reports no additional constitutional complaints Eyes: Eyes: Reports as per HPI and Reports no additional eye complaints ENT: Reports system reviewed and no additional complaints, except as documented and Reports as per HPI Cardiovascular: Cardiovascular: Reports as per HPI and Reports no additional cardiovascular complaints Respiratory: Respiratory: Reports as per HPI and Reports no additional respiratory complaints Gastrointestinal: Gastrointestinal: Reports as per HPI and Reports no additional gastrointestinal complaints Genitourinary: Genitourinary: Reports no additional female genitourinary complaints and Reports as per HPI Musculoskeletal: Musculoskeletal: Reports no additional musculoskeletal complaints and Reports as per HPI Integumentary/Breasts: Skin/Breast: Reports system reviewed and no additional complaints, except as docu and Reports as per HPI Neurologic: Reports system reviewed and no additional complaints, except as documented and Reports as per HPI Psychiatric: Psychiatric: Reports no additional psychiatric complaints and Reports as per HPI Objective Data Vital Signs Vital Signs: Vital Signs - 24 hr 09/10/24 14:00 09/10/24 20:00 09/10/24 20:00 Temperature 97.4 F L 97.5 F L Pulse Rate 72 70 Respiratory Rate 16 16 Blood Pressure 136/55 L 101/61 Pulse Oximetry 99 97 Oxygen Delivery Room Air 09/11/24 05:36 Temperature 97.2 F L Pulse Rate 75 Respiratory Rate 16 Blood Pressure 113/65 Pulse Oximetry 98 Oxygen Delivery Intake/Output Intake/Output: Intake & Output 09/08/24 09/09/24 09/10/24 09/11/24 23:59 23:59 23:59 23:59 Intake Total 1050 1470 1210 737 Output Total 1100 500 Balance -50 970 1210 737 Meds/Results Medications: Active Medications Generic Name Dose Route Start Last Admin Trade Name Freq PRN Reason Stop Dose Admin Acetaminophen 650 mg 09/08/24 09:26 09/11/24 08:16 Acetaminophen 325 Mg Tablet PO 650 mg Q4H PRN Administration Mild Pain (1-3) or Fever Albuterol 2 puff 09/07/24 23:18 Albuterol Sulfate (*Sp) Aerosol 1 Puff INHALATION PRN PRN Shortness Of Breath Alprazolam 1 mg 09/07/24 23:18 09/11/24 08:16 Alprazolam (*Crx) 0.5 Mg Tablet PO 1 mg TID PRN Administration Anxiety Amoxicillin/Clavulanate Potassium 1 tablet 09/10/24 17:00 09/11/24 08:12 Amoxicillin/Clavulanate K 875-125 Mg Tab PO 09/12/24 09:01 1 tablet BID DANA Administration Azithromycin 500 mg 09/08/24 12:00 09/11/24 08:13 Azithromycin 250 Mg Tablet PO 09/11/24 09:01 500 mg DAILY DANA Administration Cyclobenzaprine HCl 10 mg 09/08/24 21:00 09/10/24 20:45 Cyclobenzaprine Hcl 10 Mg Tablet PO Not Given HS DANA Enoxaparin Sodium 40 mg 09/09/24 09:00 09/11/24 08:13 Enoxaparin 40 Mg/0.4 Ml Syringe SUB-Q Not Given DAILY DANA Fluoxetine HCl 20 mg 09/08/24 09:00 09/11/24 08:12 Fluoxetine Hcl 20 Mg Capsule PO 20 mg DAILY DANA Administration Ondansetron HCl 4 mg 09/08/24 09:26 Ondansetron Inj 4 Mg/2 Ml Vial IV PUSH Q6H PRN Nausea And Vomiting Pantoprazole Sodium 40 mg 09/08/24 09:00 09/11/24 08:12 Pantoprazole 40 Mg Tablet PO 40 mg QAM DANA Administration Pregabalin 75 mg 09/08/24 09:00 09/11/24 08:12 Pregabalin (*Crx) 75 Mg Capsule PO 75 mg BID DANA Administration Tramadol HCl 25 mg 09/10/24 23:10 09/11/24 06:33 Tramadol Hcl (*Crx) 25 Mg Tablet PO 25 mg Q6H PRN Administration Pain Rated 4-6 Radiology Results: ITS Impressions Chest X-Ray 09/07/24 14:55 IMPRESSION: No acute cardiopulmonary pathology. Elevation of the left hemidiaphragm with possibility of adjacent nodule cannot be excluded. CT evaluation advised. Head CT 09/07/24 14:59 IMPRESSION: No acute intracranial findings. Chest/Abdomen/Pelvis CTA 09/07/24 17:44 IMPRESSION: 1. No pulmonary embolus. 2. Airspace opacities involving left upper lobe and superior segment left lower lobe with slight worsening from 02/26/2024, likely a combination of pneumonia and scarring. 3. Mild mediastinal lymphadenopathy, likely reactive. 4. 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 5. 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 Hip/Pelvis X-Ray 09/10/24 17:22 IMPRESSION: 1. Stable appearance of a right total hip arthroplasty with chronic osteolysis and likely nonunited fracture fragments in the region of the lesser and greater trochanters. No acute osseous abnormality. 2. Partially visualized retrograde intramedullary piper fixation at the visualized proximal left femur with chronic fracture of the proximal interlocking screw. Labs Labs: Laboratory Results - last 24 hr 09/08/24 09/11/24 14:38 06:20 WBC 5.8 RBC 3.76 L Hgb 10.9 L Hct 32.9 L MCV 87.5 MCH 29.0 MCHC 33.1 RDW 14.0 Plt Count 134 L MPV 11.0 H Immature Gran % (Auto) 0.3 Neut % (Auto) 42.2 L Lymph % (Auto) 46.6 H [place] % (Auto) 8.7 H Eos % (Auto) 1.9 Baso % (Auto) 0.3 Lymph # (Auto) 2.68 [place] # (Auto) 0.5 Eos # (Auto) 0.1 Baso # (Auto) 0.0 Abs Immat Gran (auto) 0.02 Absolute Neuts (auto) 2.4 Absolute Nucleated RBC 0.000 Nucleated RBC % 0.0 % Immature Plt Fraction 7.8 Sodium 138 Potassium 3.8 Chloride 106 Carbon Dioxide 27 Anion Gap 5 BUN 18 H Creatinine 0.80 Estim Creat Clear Calc 50 Estimated GFR > 60 Glucose 96 Calcium 8.6 Total Bilirubin 0.4 AST 21 ALT 12 Alkaline Phosphatase 143 H Total Protein 7.0 Albumin 3.7 Urine Pneumococcal Ag Not detected Quality VTE Prophylaxis VTE prophylaxis: pharmacologic ordered
--- NOTE | 2024-09-11 12:17 | P.PNOP_ITS ---
Progress Note: A&P Assessment and Plan (1) Chronic hip pain after total replacement of right hip joint: Code(s): M25.551 - Pain in right hip; G89.29 - Other chronic pain; Z96.641 - Presence of right artificial hip joint Status: Acute Assessment and Plan: With the help of the medical records department I was able to obtain some records on her right hip. On 12/30/2008, Dr. Hobbs and Dr. 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 At that time it was noted that the greater trochanter had eroded through the fascia and was right under the draining sinus. The wound was able to be closed after excision of the draining sinus. I reviewed her cultures. I could not find cultures from the time of her surgical procedure but prior to her surgical procedure the wound was cultured which I assume meant the sinus tract and on 12/18/2008 it grew strep viridans group light to moderate growth and the specimen collected the day before on 12/17/2008 grew Staph aureus that was poly sensitive. On 12/19/2008 her C- reactive protein was 24.4 normal is less than 1 and her sedimentation rate was 67 normal less than 20. 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 Patient did go down for CT guided aspiration of the right hip radiologist little while ago. There is no report yet by the radiology no real laboratory report the patient cannot tell me with a it to obtain fluid or what it might of been like. Patient does report that about 4 months ago she had an episode where she had squatted down her bent over and felt a pop in her hip that she stood up and it seemed to pop back in and she is a little bit worried hip as become a little bit more unstable. Had a long discussion with her about the importance of avoiding bending over ever again to minimize the risk she will sustain a vicky dislocation. She asked about revised her hip did develop recurrent instability revision to a constrained. In general, if the femoral component were not loose and the acetabular component were not loose there would be little advantage to revising those components and reconstruction particularly of the femur would be difficult. Will require special extra long fluted tapered modular stem and instability is commonly problem after such a procedure and hopefully that would be avoided. However, she has proven infection cannot be suppressed, explantation might be consideration. Certainly she does not present at this time with the signs and symptoms of infection the way she presented back in 2008. She has only mild elevation in sedimentation rate and C-reactive protein. She has no step is warmth sinus. She has chronic tenderness over the greater trochanter with expected given her deficiency of abductor is in this location deficiency of iliotibial band placed with scar tissue since her greater trochanter had eroded through the iliotibial band had her infection in 2008. T I will continue to follow her.. Subjective Subjective Date/Time Seen: 09/11/24 12:17 Objective Data Vital Signs Vital Signs: Vital Signs - 24 hr 09/10/24 14:00 09/10/24 20:00 09/10/24 20:00 Temperature 36.3 C L 36.4 C L Pulse Rate 72 70 Respiratory Rate 16 16 Blood Pressure 136/55 L 101/61 Pulse Oximetry 99 97 Oxygen Delivery Room Air 09/11/24 05:36 Temperature 36.2 C L Pulse Rate 75 Respiratory Rate 16 Blood Pressure 113/65 Pulse Oximetry 98 Oxygen Delivery Intake/Output Intake/Output: Intake & Output 09/08/24 09/09/24 09/10/24 09/11/24 23:59 23:59 23:59 23:59 Intake Total 1050 1470 1210 1217 Output Total 1100 500 Balance -50 970 1210 1217 Meds/Results Medications: Active Medications Generic Name Dose Route Start Last Admin Trade Name Freq PRN Reason Stop Dose Admin Acetaminophen 650 mg 09/08/24 09:26 09/11/24 08:16 Acetaminophen 325 Mg Tablet PO 650 mg Q4H PRN Administration Mild Pain (1-3) or Fever Albuterol 2 puff 09/07/24 23:18 Albuterol Sulfate (*Sp) Aerosol 1 Puff INHALATION PRN PRN Shortness Of Breath Alprazolam 1 mg 09/07/24 23:18 09/11/24 08:16 Alprazolam (*Crx) 0.5 Mg Tablet PO 1 mg TID PRN Administration Anxiety Amoxicillin/Clavulanate Potassium 1 tablet 09/10/24 17:00 09/11/24 08:12 Amoxicillin/Clavulanate K 875-125 Mg Tab PO 09/12/24 09:01 1 tablet BID DANA Administration Cyclobenzaprine HCl 10 mg 09/08/24 21:00 09/10/24 20:45 Cyclobenzaprine Hcl 10 Mg Tablet PO Not Given HS DANA Enoxaparin Sodium 40 mg 09/09/24 09:00 09/11/24 08:13 Enoxaparin 40 Mg/0.4 Ml Syringe SUB-Q Not Given DAILY DANA Fluoxetine HCl 20 mg 09/08/24 09:00 09/11/24 08:12 Fluoxetine Hcl 20 Mg Capsule PO 20 mg DAILY DANA Administration Ondansetron HCl 4 mg 09/08/24 09:26 Ondansetron Inj 4 Mg/2 Ml Vial IV PUSH Q6H PRN Nausea And Vomiting Pantoprazole Sodium 40 mg 09/08/24 09:00 09/11/24 08:12 Pantoprazole 40 Mg Tablet PO 40 mg QAM DANA Administration Pregabalin 75 mg 09/08/24 09:00 09/11/24 08:12 Pregabalin (*Crx) 75 Mg Capsule PO 75 mg BID DANA Administration Tramadol HCl 25 mg 09/10/24 23:10 09/11/24 06:33 Tramadol Hcl (*Crx) 25 Mg Tablet PO 25 mg Q6H PRN Administration Pain Rated 4-6 Radiology Results: ITS Impressions Chest X-Ray 09/07/24 14:55 IMPRESSION: No acute cardiopulmonary pathology. Elevation of the left hemidiaphragm with possibility of adjacent nodule cannot be excluded. CT evaluation advised. Head CT 09/07/24 14:59 IMPRESSION: No acute intracranial findings. Chest/Abdomen/Pelvis CTA 09/07/24 17:44 IMPRESSION: 1. No pulmonary embolus. 2. Airspace opacities involving left upper lobe and superior segment left lower lobe with slight worsening from 02/26/2024, likely a combination of pneumonia and scarring. 3. Mild mediastinal lymphadenopathy, likely reactive. 4. 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 5. 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 Hip/Pelvis X-Ray 09/10/24 17:22 IMPRESSION: 1. Stable appearance of a right total hip arthroplasty with chronic osteolysis and likely nonunited fracture fragments in the region of the lesser and greater trochanters. No acute osseous abnormality. 2. Partially visualized retrograde intramedullary piper fixation at the visualized proximal left femur with chronic fracture of the proximal interlocking screw. Labs Labs: Laboratory Results - last 24 hr 09/08/24 09/11/24 14:38 06:20 WBC 5.8 RBC 3.76 L Hgb 10.9 L Hct 32.9 L MCV 87.5 MCH 29.0 MCHC 33.1 RDW 14.0 Plt Count 134 L MPV 11.0 H Immature Gran % (Auto) 0.3 Neut % (Auto) 42.2 L Lymph % (Auto) 46.6 H [place] % (Auto) 8.7 H Eos % (Auto) 1.9 Baso % (Auto) 0.3 Lymph # (Auto) 2.68 [place] # (Auto) 0.5 Eos # (Auto) 0.1 Baso # (Auto) 0.0 Abs Immat Gran (auto) 0.02 Absolute Neuts (auto) 2.4 Absolute Nucleated RBC 0.000 Nucleated RBC % 0.0 % Immature Plt Fraction 7.8 Sodium 138 Potassium 3.8 Chloride 106 Carbon Dioxide 27 Anion Gap 5 BUN 18 H Creatinine 0.80 Estim Creat Clear Calc 50 Estimated GFR > 60 Glucose 96 Calcium 8.6 Total Bilirubin 0.4 AST 21 ALT 12 Alkaline Phosphatase 143 H Total Protein 7.0 Albumin 3.7 Urine Pneumococcal Ag Not detected
[2024-09-11 14:00] VITALS: BP 116/71; PULSE 84; RESP 16; TEMP 37.2; O2SAT 97
--- NOTE | 2024-09-11 15:10 | PM.OP ---
Procedure Note - Brief Procedure Note - Brief Date of procedure: 09/11/24 Abnormal imaging of the R hip - infection versus particle disease. Procedure performed: aspiration R GH joint Surgeon: Urmila Padron MD Description of procedure: Sterile technique CT guidance 12G bone biopsy trocar utilized for sampling CT confirmed placement within the R GH joint space NO FLUID COMPONENT Specimen obtained Sterile dressing applied Estimated blood loss (mL): 0.1 Urine output (mL): 500 Pathology: Yes Complications: No immediate complications Condition: Stable Disposition: Floor
[2024-09-11 19:49] VITALS: BP 109/57; PULSE 73; RESP 16; TEMP 36.6; O2SAT 97
[2024-09-11] MEDS: CYCLOBENZAPRINE HCL 10 MG TABLET PO (20:55)
[2024-09-12] MEDS: traMADol HCL (*CRX) 25 MG TABLET PO (03:22)
[2024-09-12 06:00] VITALS: BP 107/87; PULSE 73; RESP 16; TEMP 36.3; O2SAT 100
[2024-09-12 06:27] LABS: Basophils Percent Auto 0.4 % (0.2-1.2); Eosinophils Absolute Auto 0.2 K/mm3 (0-0.3); Eosinophils Percent Auto 2.4 % (0-4.4); Hematocrit 36.6 % (37.0-47.0); Hemoglobin 11.7 g/dL (12.0-15.0); Immature Granulocyte Absolute 0.03 K/mm3 (0.00-0.031); Immature Granulocyte Percent A 0.4 % (0-0.5); Lymphocytes Absolute Auto 2.75 K/mm3 (0.9-3.2); Lymphocytes Percent Auto 40.9 % (18.3-44.2); Mean Corpuscular Hemoglobin 27.9 pg (26-34); Mean Corpuscular Volume 87.1 fl (80-100); Mean Platelet Volume 11.6 fl (7.4-10.4); Monocytes Absolute Auto 0.6 K/mm3 (0.1-0.6); Monocytes Percent Auto 9.5 % (2.6-8.5); Neutrophils Absolute Auto 3.1 K/mm3 (1.3-6.7); Neutrophils Percent Auto 46.4 % (45.5-73.1); Platelet Count Result 154 k/mm3 (150-375); Red Cell Distribution Width 13.9 % (11.5-14.5); White Blood Count 6.7 K/mm3 (4.5-10.0)
[2024-09-12 06:40] LABS: Alanine Aminotransferase 12 U/L (6-35); Albumin Level 4.1 g/dL (3.5-5.1); Alkaline Phosphatase 156 U/L (38-126); Anion Gap 5 mmol/L (4-12); Aspartate Amino Transferase 24 U/L (14-36); Bilirubin,Total 0.4 mg/dL (0.2-1.3); Blood Urea Nitrogen 18 mg/dL (7-17); Carbon Dioxide 30 mmol/L (22-30); Chloride 103 mmol/L (98-107); Estimated CRCL calculation 56 ml/min; Estimated Glomerular Filt Rate > 60; Glucose 96 mg/dL (65-110); Potassium 4.2 mmol/L (3.4-5.0); Sodium 138 mmol/L (137-145)
[2024-09-12 08:00] VITALS: PULSE 73; RESP 16; O2SAT 100
[2024-09-12] MEDS: PREGABALIN (*CRX) 75 MG CAPSULE PO ×2 (08:49→08:51)
[2024-09-12] MEDS: PANTOPRAZOLE 40 MG TABLET PO (08:49)
[2024-09-12] MEDS: FLUoxetine HCL 20 MG CAPSULE PO (08:49)
[2024-09-12] MEDS: ACETAMINOPHEN 325 MG TABLET 650 MG PO (08:49)
[2024-09-12] MEDS: ALPRAZolam (*CRX) 0.5 MG TABLET 1 MG PO (08:49)
[2024-09-12] MEDS: AMOXICILLIN/CLAVULANATE K 875-125 MG TAB 1 TABLET PO (08:51)
--- NOTE | 2024-09-12 10:01 | P.DS_ITS ---
DS: Admitting Diagnosis Discharge Date 09/12 Admitting Diagnosis chest pain, sob DS: Discharge Diagnosis Discharge Diagnosis (1) Pneumonia: Qualifiers: Laterality: left Lung location: upper lobe of lung Pneumonia type: due to unspecified organism Qualified Code(s): J18.9 - Pneumonia, unspecified organism Code(s): J18.9 - Pneumonia, unspecified organism Status: Acute (2) ILD (interstitial lung disease): Code(s): J84.9 - Interstitial pulmonary disease, unspecified Status: Acute (3) GERD (gastroesophageal reflux disease): Code(s): K21.9 - Gastro-esophageal reflux disease without esophagitis Status: Acute (4) Subclavian steal syndrome: Code(s): G45.8 - Other transient cerebral ischemic attacks and related syndromes Status: Acute (5) Trochanteric bursitis of left hip: Code(s): M70.62 - Trochanteric bursitis, left hip Status: Acute (6) Pancytopenia: Code(s): D61.818 - Other pancytopenia Status: Acute DS: Summary Hospital Course Hospital Course: This is a 64-year-old female who presented to the hospital on 09/07/2024 with complaints dizziness, fever of 104, shortness of breath, cough, pain across her upper chest, nausea, vomiting, diarrhea, abdominal pain, headache since last . Chest x-ray was negative. CT of the brain was negative. Chest/ abdomen/pelvis CTA was negative for PE, showed airspace opacities involving left upper lobe and superior segment of the left lower lobe, mild mediastinal lymphadenopathy, total occlusion the right subclavian artery with reconstitution consistent with subclavian steal syndrome, total right hip arthroplasty with osteolysis. Initial labs showed a normal white blood cell count of 6.0, platelet count of 133, D-dimer 0.95, INR 1.0, sodium 136, lactic acid was normal at 1.3, alk-phos 214, troponin negative x3, proBNP 157, lipase normal at 133. UA was obtained which showed little +leukocyte, otherwise negative. Respiratory panel was negative for influenza a and B, RSV, COVID. Blood and urine cultures were obtained and are currently pending. Patient was started on Rocephin and azithromycin, given a dose of meclizine, DuoNeb, Solu-Medrol, and morphine while in the ED. Ortho was consulted. See notes and recommendations. Patient did go down for CT guided aspiration of the right hip 09/11 Low suspicion for infection at this point: only mild elevation in sedimentation rate and C-reactive protein. She has chronic tenderness over the greater trochanter with expected given her deficiency of abductor is in this location deficiency of iliotibial band placed with scar tissue since her greater trochanter had eroded through the iliotibial band had her infection in 2008 We will monitor her joint aspiration culture result and she will be discharged to f/u with ortho, DR Hobbs in 1 week She completed her antibiotic treatment prior to discharge. Status at Discharge Functional status at discharge: uses cane/walker Overall status at discharge: patient is progressing back to baseline Time Spent with Patient Time attestation: Total time spent providing and/or coordinating discharge services: Time spent: Greater than 30 minutes Exam Const: General: comfortable DS: Data Data Completed and Pending Completed studies during hospitalization: joint aspiration Labs on day of discharge: Labs from last 24 hours 09/12/24 05:42 WBC 6.7 RBC 4.20 Hgb 11.7 L Hct 36.6 L MCV 87.1 MCH 27.9 MCHC 32.0 RDW 13.9 Plt Count 154 MPV 11.6 H Immature Gran % (Auto) 0.4 Neut % (Auto) 46.4 Lymph % (Auto) 40.9 [place] % (Auto) 9.5 H Eos % (Auto) 2.4 Baso % (Auto) 0.4 Lymph # (Auto) 2.75 [place] # (Auto) 0.6 Eos # (Auto) 0.2 Baso # (Auto) 0.0 Abs Immat Gran (auto) 0.03 Absolute Neuts (auto) 3.1 Absolute Nucleated RBC 0.000 Nucleated RBC % 0.0 Sodium 138 Potassium 4.2 Chloride 103 Carbon Dioxide 30 Anion Gap 5 BUN 18 H Creatinine 0.70 Estim Creat Clear Calc 56 Estimated GFR > 60 Glucose 96 Calcium 9.0 Total Bilirubin 0.4 AST 24 ALT 12 Alkaline Phosphatase 156 H Total Protein 7.0 Albumin 4.1 Preliminary micro results at discharge 09/07/24 19:10 Blood Culture - Preliminary Blood 09/07/24 19:10 Blood Culture - Preliminary Blood Procedures/Treatments: joint aspiration Discharge Plan Discharge Attending physician on discharge: Obed Morales Consulting providers: Raffi Reeves Discharging Clinician: Arleen Marcus Patient Disposition: Home, Self-Care Activity: may shower Diet: as tolerated and heart healthy Discharge Instructions: You completed Augmentin treatment for your pneumonia. PLease follow up with Donaldo zaidi in 1 week- call om Saturday and make an donavon. You had joint aspiration done while in the hospital to check for nay infection. The result may not be as accurate due to the fact that you had been on antibiotics for pneumonia- so it is very important for you to follow up with ortho in 1 week to assess if any other tests needed to assess fr joint infection. WE will follow the culture and call you and let you know if it grows any bacteria. Please ensure we have a correct number on file- so we can get hold of you of needed. Try to avoid strong pain medication, as it puts you at risk for fall. Try over the counter lidocaine for pain, tylenol, voltaren gel. Patient Instructions: Antibiotic Form Stand Alone Forms: General Discharge Information Follow-up/Referrals: Gelacio Hobbs MD [Physician] - 1 Week Discharge Medications: New acetaminophen 325 mg Tablet 650 mg PO Q4H PRN (Reason: Mild Pain (1-3) Or Fever) Qty: 60 0RF diclofenac sodium [Voltaren Arthritis Pain] 1 % gel 2 g topical QID Qty: 100 0RF Rx Instructions: apply to single elbow, wrist or hand; for hand includes palm/fingers/back of hand Continued albuterol sulfate 90 mcg/actuation HFA aerosol inhaler 2 inh INHALATION PRN PRN (Reason: Shortness Of Breath) fluoxetine 20 mg capsule 20 mg PO DAILY pregabalin 75 mg capsule 75 mg PO BID cyclobenzaprine 10 mg tablet 10 mg PO HS alprazolam 1 mg tablet 1 mg PO TID PRN (Reason: Anxiety) omeprazole 20 mg capsule,delayed release(DR/EC) 20 mg PO DAILY Date of admission: 09/07/24 18:28 Primary Care Provider: Justin Anne Admitting Provider: Sharon Lovett Attending physician on admission: Demetra Payan Condition: Stable Quality VTE Prophylaxis VTE prophylaxis: pharmacologic ordered Hospitalist MIPS Heart Failure (Exclusion) Patient has history of Heart Transplant or Left Ventricular Assistive Device?: No IF YES, STOP HERE Heart Failure (Qualifier) Patient has current or prior documentation of LVEF less than or equal to 40%, or mod/servere depressed LVSF?: No IF NO, STOP HERE
--- NOTE | 2024-09-12 11:14 | PCPTNOTE ---
attempted PT eval, pt on phone for 30+ minutes while PT attempted to see pt, per RN pt is discharging soon and has been doing well in her room without alarms
--- NOTE | 2024-09-12 12:29 | P.PNOP_ITS ---
Progress Note: A&P Assessment and Plan (1) Chronic hip pain after total replacement of right hip joint: Code(s): M25.551 - Pain in right hip; G89.29 - Other chronic pain; Z96.641 - Presence of right artificial hip joint Status: Acute Assessment and Plan: Patient underwent CT-guided aspiration of the right hip yesterday by the radiologist. No fluid could be obtained from the hip joint infection there. Apparently a needle biopsy of the bone obtained. There are 2 cultures that were set up 1 is called bursa and one is called tissue from the right hip. Assessment and plan In the absence of any detectable fluid around the right hip we have no reason a periprosthetic time. I have explained to her that if she develops increased pain in the hip over time she may need further evaluation as she is at increased risk for infection since she has had infection in the remote past back in 2008. She has been seeing Dr Hobbs over the last 15 years, most recently in Nov for her left hip. She does have chronic pain which I believe is due to the abductor deficiency due to fragmentation of the intertrochanteric region of her proximal femur. Unfortunately there is not a good surgical solution for that problem. She plans to be discharged home today. Subjective Subjective Date/Time Seen: 09/12/24 12:29 Objective Data Vital Signs Vital Signs: Vital Signs - 24 hr 09/11/24 14:00 09/11/24 19:49 09/11/24 20:00 Temperature 37.2 C 36.6 C Pulse Rate 84 73 Respiratory Rate 16 16 Blood Pressure 116/71 109/57 L Pulse Oximetry 97 97 Oxygen Delivery Room Air 09/12/24 06:00 Temperature 36.3 C L Pulse Rate 73 Respiratory Rate 16 Blood Pressure 107/87 Pulse Oximetry 100 Oxygen Delivery Intake/Output Intake/Output: Intake & Output 09/09/24 09/10/24 09/11/24 09/12/24 23:59 23:59 23:59 23:59 Intake Total 1470 1210 2547 737 Output Total 500 500 Balance 970 1210 2047 737 Meds/Results Medications: Active Medications Generic Name Dose Route Start Last Admin Trade Name Freq PRN Reason Stop Dose Admin Acetaminophen 650 mg 09/08/24 09:26 09/12/24 08:49 Acetaminophen 325 Mg Tablet PO 650 mg Q4H PRN Administration Mild Pain (1-3) or Fever Albuterol 2 puff 09/07/24 23:18 Albuterol Sulfate (*Sp) Aerosol 1 Puff INHALATION PRN PRN Shortness Of Breath Alprazolam 1 mg 09/07/24 23:18 09/12/24 08:49 Alprazolam (*Crx) 0.5 Mg Tablet PO 1 mg TID PRN Administration Anxiety Cyclobenzaprine HCl 10 mg 09/08/24 21:00 09/11/24 20:55 Cyclobenzaprine Hcl 10 Mg Tablet PO 10 mg HS DANA Administration Enoxaparin Sodium 40 mg 09/09/24 09:00 09/12/24 08:51 Enoxaparin 40 Mg/0.4 Ml Syringe SUB-Q Not Given DAILY DANA Fluoxetine HCl 20 mg 09/08/24 09:00 09/12/24 08:49 Fluoxetine Hcl 20 Mg Capsule PO 20 mg DAILY DANA Administration Ondansetron HCl 4 mg 09/08/24 09:26 Ondansetron Inj 4 Mg/2 Ml Vial IV PUSH Q6H PRN Nausea And Vomiting Pantoprazole Sodium 40 mg 09/08/24 09:00 09/12/24 08:49 Pantoprazole 40 Mg Tablet PO 40 mg QAM DANA Administration Pregabalin 75 mg 09/08/24 09:00 09/12/24 08:51 Pregabalin (*Crx) 75 Mg Capsule PO 75 mg BID DANA Administration Radiology Results: ITS Impressions Chest X-Ray 09/07/24 14:55 IMPRESSION: No acute cardiopulmonary pathology. Elevation of the left hemidiaphragm with possibility of adjacent nodule cannot be excluded. CT evaluation advised. Head CT 09/07/24 14:59 IMPRESSION: No acute intracranial findings. Chest/Abdomen/Pelvis CTA 09/07/24 17:44 IMPRESSION: 1. No pulmonary embolus. 2. Airspace opacities involving left upper lobe and superior segment left lower lobe with slight worsening from 02/26/2024, likely a combination of pneumonia and scarring. 3. Mild mediastinal lymphadenopathy, likely reactive. 4. 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 5. 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 Hip/Pelvis X-Ray 09/10/24 17:22 IMPRESSION: 1. Stable appearance of a right total hip arthroplasty with chronic osteolysis and likely nonunited fracture fragments in the region of the lesser and greater trochanters. No acute osseous abnormality. 2. Partially visualized retrograde intramedullary piper fixation at the visualized proximal left femur with chronic fracture of the proximal interlocking screw. Labs Labs: Laboratory Results - last 24 hr 09/12/24 05:42 WBC 6.7 RBC 4.20 Hgb 11.7 L Hct 36.6 L MCV 87.1 MCH 27.9 MCHC 32.0 RDW 13.9 Plt Count 154 MPV 11.6 H Immature Gran % (Auto) 0.4 Neut % (Auto) 46.4 Lymph % (Auto) 40.9 [place] % (Auto) 9.5 H Eos % (Auto) 2.4 Baso % (Auto) 0.4 Lymph # (Auto) 2.75 [place] # (Auto) 0.6 Eos # (Auto) 0.2 Baso # (Auto) 0.0 Abs Immat Gran (auto) 0.03 Absolute Neuts (auto) 3.1 Absolute Nucleated RBC 0.000 Nucleated RBC % 0.0 Sodium 138 Potassium 4.2 Chloride 103 Carbon Dioxide 30 Anion Gap 5 BUN 18 H Creatinine 0.70 Estim Creat Clear Calc 56 Estimated GFR > 60 Glucose 96 Calcium 9.0 Total Bilirubin 0.4 AST 24 ALT 12 Alkaline Phosphatase 156 H Total Protein 7.0 Albumin 4.1
== END 2024-09-12 13:40 | disposition home or self-care (01) ==
LOC: ANHED 18:28 → ANH3MEDSUR 20:09
PROVIDERS: Emergency Medicine; Physician Assistant; Admitting Provider Internal Medicine; Emergency Provider Physician Assistant; PCP Emergency Medicine; Visit Provider Nurse Practitioner Acute Care
DX: J18.9 Pneumonia, unspecified organism (principal); R07.81 Pleurodynia; G45.8 Other transient cerebral ischemic attacks and related syndromes; K21.9 Gastro-esophageal reflux disease without esophagitis; D61.818 Other pancytopenia; T84.050A Periprosthetic osteolysis of internal prosthetic right hip joint, initial encounter; G89.29 Other chronic pain; M70.62 Trochanteric bursitis, left hip; M06.9 Rheumatoid arthritis, unspecified; F17.210 Nicotine dependence, cigarettes, uncomplicated; M75.02 Adhesive capsulitis of left shoulder; M19.012 Primary osteoarthritis, left shoulder; M17.11 Unilateral primary osteoarthritis, right knee; M47.22 Other spondylosis with radiculopathy, cervical region; F41.9 Anxiety disorder, unspecified; F32.A Depression, unspecified; Z20.822 Contact with and (suspected) exposure to COVID-19; Z88.6 Allergy status to analgesic agent; Z79.51 Long term (current) use of inhaled steroids; Z79.899 Other long term (current) drug therapy; Z98.890 Other specified postprocedural states
CPT/HCPCS: 10160; 36415; 70450; 71046; 71275; 73502; 74177; 77012; 80053; 81001; 82607; 82746; 83605; 83690; 83735; 83880; 84145; 84484; 85025; 85055; 85380; 85610; 85652; 85730; 86140; 87040; 87070; 87075; 87081; 87086; 87205; 87581; 87637; 87641; 87899; 93005; 94640; 96361; 96365; 96366; 96372; 96375; 96376; 97166; 99285; A9270; G0378; J0456; J0696; J1650; J2270; J2919; J7030; Q9967